=== PATIENT | male | born 1960 | race Caucasian/White ===

== ENCOUNTER 2017-04-16 13:00 | Inpatient (IN) | payer MEDICAID ==
[~2017-04-16] VITALS: Ht 182.9 cm; Wt 68.2 kg
[2017-04-16] MEDS ORDERED: SODIUM CHLORIDE FLUSH 10ML SYR IVF ONE (14:30)
[2017-04-16 14:52] LABS: INTERNATIONAL NORMALIZED RATIO 1.51 (0.93-1.1); PROTHROMBIN TIME 15.6 Seconds (9.6-11.5)
[2017-04-16 14:53] LABS: ALANINE AMINOTRANSFERASE 49 U/L (12-78); ALBUMIN 2.2 g/dL (3.4-5.0); ANION GAP 7 mmol/L (5-15); CALCIUM 7.7 mg/dL (8.5-10.1); CHLORIDE 105 mmol/L (98-107); CREATININE 0.61 mg/dL (0.7-1.3)
[2017-04-16 14:58] LABS: ALKALINE PHOSPHATASE 207 U/L (45-117); BILIRUBIN,TOTAL 4.1 mg/dL (0.2-1.0); TOTAL PROTEIN 8.4 g/dL (6.4-8.2)
[2017-04-16 15:12] LABS: BASOPHILS # (AUTO) 0.09 x10^3/uL (0-0.1); BASOPHILS % (AUTO) 1 % (0-1); EOSINOPHILS # (AUTO) 0.15 x10^3/uL (0-0.4); EOSINOPHILS % (AUTO) 2 % (1-7); LYMPHOCYTES # (AUTO) 0.98 x10^3/uL (1-3.4); LYMPHOCYTES % (AUTO) 15 % (22-44); MD SCAN; MEAN CORPUSCULAR HEMOGLOBIN 39.1 pg (27.5-34.5); MEAN CORPUSCULAR HGB CONC 33.4 g/dL (33.2-36.2); MEAN CORPUSCULAR VOLUME 117.2 fL (81-97); MEAN PLATELET VOLUME 8.3 fL (7.4-10.4); MONOCYTES # (AUTO) 0.74 x10^3/uL (0.2-0.8); MONOCYTES % (AUTO) 11 % (2-9); NEUTROPHILS # (AUTO) 4.78 x10^3/uL (1.8-6.8); NEUTROPHILS % (AUTO) 71 % (42-75); PLATELET COUNT 93 x10^3/uL (130-400); RED BLOOD COUNT 3.67 x10^6/uL (4.38-5.82); RED CELL DISTRIBUTION WIDTH 16.3 % (9.4-14.8)
[2017-04-16] MEDS ORDERED: LIDOCAINE 1%, 20ML ONE (15:55)
[2017-04-16] MEDS ORDERED: LORazepam 0.5MG TABLET PO PRN (16:30)
[2017-04-16] MEDS ORDERED: SODIUM CHLORIDE FLUSH 10ML SYR IVF PRN (16:30)
[2017-04-16] MEDS ORDERED: ONDANSETRON 2MG/ML, 2ML IVPush PRN (16:30)
[2017-04-16] MEDS ORDERED: POLYETHYLENE GLYCOL 17 GM PACKET PO PRN (16:30)
[2017-04-16] MEDS ORDERED: LORazepam 1MG TABLET PO PRN (16:30)
[2017-04-16] MEDS ORDERED: DOCUSATE 100 MG CAPSULE PO PRN (16:30)
[2017-04-16] MEDS ORDERED: morphine SULFATE 10 MG/ML, 1ML IVPush PRN (16:30)
[2017-04-16 16:31] LABS: ACETONE, SERUM Negative (Negative)
[2017-04-16] MEDS: DILTIAZEM 5 MG/ML, 5ML IVPush PRN (18:02)
[2017-04-16 18:09] VITALS: BP 128/70
[2017-04-16 18:28] LABS: CELLS COUNTED 34
[2017-04-16] MEDS: FUROSEMIDE 40 MG/4 ML IV SCH (18:56)
[2017-04-16] MEDS: NICOTINE 14MG/24 HR PATCH.TD24 TD SCH (18:57)
[2017-04-16 20:30] LABS: CULTURE INDICATED? YES; MICROSCOPIC INDICATED
[2017-04-16 20:40] VITALS: BP 111/74
[2017-04-16] MEDS: FAMOTIDINE 20 MG TABLET PO SCH (21:05)
[2017-04-16] MEDS: SODIUM CHLORIDE FLUSH 10ML SYR IVF SCH (21:07)
[2017-04-17 01:18] VITALS: BP 142/95
[2017-04-17 05:14] LABS: MEAN CORPUSCULAR HGB CONC 34.1 g/dL (33.2-36.2); MEAN CORPUSCULAR VOLUME 117.4 fL (81-97); MEAN PLATELET VOLUME 8.3 fL (7.4-10.4); PLATELET COUNT 55 x10^3/uL (130-400); RED BLOOD COUNT 3.14 x10^6/uL (4.38-5.82); RED CELL DISTRIBUTION WIDTH 15.7 % (9.4-14.8)
[2017-04-17 05:20] LABS: ALANINE AMINOTRANSFERASE 37 U/L (12-78); ALBUMIN 1.7 g/dL (3.4-5.0); ANION GAP 9 mmol/L (5-15); CHLORIDE 107 mmol/L (98-107); CREATININE 0.51 mg/dL (0.7-1.3)
[2017-04-17 05:24] LABS: ALKALINE PHOSPHATASE 148 U/L (45-117); BILIRUBIN,TOTAL 3.1 mg/dL (0.2-1.0); CHOL/HDL RATIO 2.2; CHOLESTEROL, TOTAL 75 mg/dL (140-239); HDL CHOL % 45 % (26-37); HDL CHOLESTEROL (DIRECT) 34 mg/dL (40-60); LDL CHOLESTEROL,CALCULATED 27 mg/dL (54-169); LDL/HDL RATIO 0.8 (0.5-3.0); TOTAL PROTEIN 6.5 g/dL (6.4-8.2); TRIGLYCERIDES 69 mg/dL (50-200); VLDL CHOLESTEROL 14 mg/dL (0-25)
[2017-04-17 06:00] LABS: BASOPHILS # (AUTO) 0.09 x10^3/uL (0-0.1); BASOPHILS % (AUTO) 2 % (0-1); EOSINOPHILS # (AUTO) 0.13 x10^3/uL (0-0.4); EOSINOPHILS % (AUTO) 3 % (1-7); LYMPHOCYTES # (AUTO) 0.89 x10^3/uL (1-3.4); LYMPHOCYTES % (AUTO) 19 % (22-44); MD SCAN; MONOCYTES # (AUTO) 0.72 x10^3/uL (0.2-0.8); MONOCYTES % (AUTO) 15 % (2-9); NEUTROPHILS # (AUTO) 2.99 x10^3/uL (1.8-6.8); NEUTROPHILS % (AUTO) 62 % (42-75)
[2017-04-17 07:13] VITALS: BP 113/66
[2017-04-17] MEDS: DILTIAZEM 5 MG/ML, 5ML IVPush PRN ×2 (07:49→08:20)
[2017-04-17 07:50] VITALS: BP 123/79
[2017-04-17] MEDS: FUROSEMIDE 40 MG/4 ML IV SCH ×2 (07:52→18:03)
[2017-04-17] MEDS: THIAMINE 100MG TABLET PO SCH (07:52)
[2017-04-17] MEDS: MULTIVITAMIN 1 TABLET PO SCH (07:52)
[2017-04-17] MEDS: SENNA/DOCUSATE TABLET PO SCH (07:52)
[2017-04-17] MEDS: FOLIC ACID 1 MG TABLET PO SCH (07:52)
[2017-04-17] MEDS: FAMOTIDINE 20 MG TABLET PO SCH ×2 (07:53→21:39)
[2017-04-17] MEDS: SODIUM CHLORIDE FLUSH 10ML SYR IVF SCH ×2 (07:53→21:40)
[2017-04-17] MEDS ORDERED: MAGNESIUM SULFATE PMX 2GM/50ML 50 ML IV ONE (09:00)
[2017-04-17] MEDS: METOPROLOL TARTRATE 25 MG TABLET PO SCH ×2 (09:06→21:39)
[2017-04-17 13:55] VITALS: BP 129/81
[2017-04-17] MEDS: NICOTINE 14MG/24 HR PATCH.TD24 TD SCH (18:03)
[2017-04-17 19:08] VITALS: BP 119/75
[2017-04-17] MEDS: OXYcodone IR 5MG TABLET PO PRN (21:44)
[2017-04-18 01:48] VITALS: BP 112/67
[2017-04-18 05:17] LABS: INTERNATIONAL NORMALIZED RATIO 1.82 (0.93-1.1); PROTHROMBIN TIME 18.7 Seconds (9.6-11.5)
[2017-04-18 05:19] LABS: ALBUMIN 1.7 g/dL (3.4-5.0); ANION GAP 10 mmol/L (5-15); CALCIUM 7.2 mg/dL (8.5-10.1); CHLORIDE 103 mmol/L (98-107)
[2017-04-18 05:22] LABS: MEAN CORPUSCULAR HEMOGLOBIN 39.6 pg (27.5-34.5); MEAN CORPUSCULAR HGB CONC 34.4 g/dL (33.2-36.2); MEAN CORPUSCULAR VOLUME 115.3 fL (81-97); RED CELL DISTRIBUTION WIDTH 14.9 % (9.4-14.8)
[2017-04-18 05:24] LABS: ALANINE AMINOTRANSFERASE 34 U/L (12-78); ALKALINE PHOSPHATASE 124 U/L (45-117); BILIRUBIN,TOTAL 5.9 mg/dL (0.2-1.0); CREATININE 0.64 mg/dL (0.7-1.3); TOTAL PROTEIN 6.5 g/dL (6.4-8.2)
[2017-04-18 06:06] LABS: MEAN PLATELET VOLUME 8.3 fL (7.4-10.4)
[2017-04-18 06:09] LABS: PLATELET COUNT 47 x10^3/uL (130-400)
[2017-04-18 06:15] LABS: BASOPHILS # (AUTO) 0.09 x10^3/uL (0-0.1); BASOPHILS % (AUTO) 2 % (0-1); EOSINOPHILS # (AUTO) 0.15 x10^3/uL (0-0.4); EOSINOPHILS % (AUTO) 3 % (1-7); LYMPHOCYTES # (AUTO) 0.81 x10^3/uL (1-3.4); LYMPHOCYTES % (AUTO) 17 % (22-44); MD SCAN; MONOCYTES % (AUTO) 13 % (2-9); NEUTROPHILS % (AUTO) 66 % (42-75)
[2017-04-18 07:05] VITALS: BP 114/79
[2017-04-18] MEDS ORDERED: MAGNESIUM SULFATE PMX 2GM/50ML 50 ML IV ONE (09:00)
[2017-04-18] MEDS ORDERED: METOPROLOL TARTRATE 25 MG TABLET ONE (09:29)
[2017-04-18] MEDS: MULTIVITAMIN 1 TABLET PO SCH (09:36)
[2017-04-18] MEDS: FUROSEMIDE 40 MG/4 ML IV SCH ×2 (09:36→17:08)
[2017-04-18] MEDS: FOLIC ACID 1 MG TABLET PO SCH (09:36)
[2017-04-18] MEDS: THIAMINE 100MG TABLET PO SCH (09:36)
[2017-04-18] MEDS: SODIUM CHLORIDE FLUSH 10ML SYR IVF SCH ×2 (09:37→20:51)
[2017-04-18] MEDS: FAMOTIDINE 20 MG TABLET PO SCH ×2 (09:37→20:51)
[2017-04-18] MEDS: OXYcodone IR 5MG TABLET PO PRN ×3 (09:43→21:11)
[2017-04-18] MEDS: SENNA/DOCUSATE TABLET PO SCH (09:44)
[2017-04-18] MEDS: METOPROLOL TARTRATE 25 MG TABLET PO SCH ×2 (09:44→17:08)
[2017-04-18 10:29] LABS: BILIRUBIN, DIRECT 2.3 mg/dL (0.1-0.2)
[2017-04-18 14:18] VITALS: BP 115/69
[2017-04-18] MEDS ORDERED: METOPROLOL TARTRATE 25 MG TABLET PO SCH (17:00)
[2017-04-18] MEDS ORDERED: POTASSIUM CHLORIDE 20 MEQ TAB.ER.PRT PO SCH (17:00)
[2017-04-18] MEDS: NICOTINE 14MG/24 HR PATCH.TD24 TD SCH (17:08)
[2017-04-18 20:00] VITALS: BP 98/63
[2017-04-19] VITALS (7 sets, daily range): BP systolic 101–112; BP diastolic 68–74
[2017-04-19] MEDS: LORazepam 2 MG/ML, 1ML IV PRN ×7 (02:36→23:53)
[2017-04-19] MEDS: METOPROLOL TARTRATE 25 MG TABLET PO SCH ×3 (02:36→17:52)
[2017-04-19 05:08] LABS: MEAN CORPUSCULAR HEMOGLOBIN 39.6 pg (27.5-34.5); MEAN CORPUSCULAR HGB CONC 33.9 g/dL (33.2-36.2); MEAN CORPUSCULAR VOLUME 116.9 fL (81-97); RED BLOOD COUNT 3.32 x10^6/uL (4.38-5.82); RED CELL DISTRIBUTION WIDTH 15.3 % (9.4-14.8)
[2017-04-19 05:11] LABS: INTERNATIONAL NORMALIZED RATIO 1.85 (0.93-1.1)
[2017-04-19 05:14] LABS: CHLORIDE 102 mmol/L (98-107)
[2017-04-19 05:20] LABS: ALANINE AMINOTRANSFERASE 35 U/L (12-78); ALBUMIN 1.9 g/dL (3.4-5.0); ALKALINE PHOSPHATASE 133 U/L (45-117); ANION GAP 11 mmol/L (5-15); BILIRUBIN,TOTAL 4.4 mg/dL (0.2-1.0); CREATININE 0.71 mg/dL (0.7-1.3); TOTAL PROTEIN 6.9 g/dL (6.4-8.2)
[2017-04-19 05:49] LABS: PLATELET COUNT 59 x10^3/uL (130-400)
[2017-04-19 05:51] LABS: BASOPHILS # (AUTO) 0.12 x10^3/uL (0-0.1); BASOPHILS % (AUTO) 2 % (0-1); EOSINOPHILS # (AUTO) 0.25 x10^3/uL (0-0.4); EOSINOPHILS % (AUTO) 4 % (1-7); LYMPHOCYTES # (AUTO) 1.23 x10^3/uL (1-3.4); LYMPHOCYTES % (AUTO) 18 % (22-44); MD SCAN; MONOCYTES # (AUTO) 0.77 x10^3/uL (0.2-0.8); MONOCYTES % (AUTO) 11 % (2-9); NEUTROPHILS # (AUTO) 4.45 x10^3/uL (1.8-6.8); NEUTROPHILS % (AUTO) 65 % (42-75)
[2017-04-19] MEDS ORDERED: DIGOXIN 0.25 MG/ML, 2ML IVPush ONE (07:30)
[2017-04-19] MEDS: FAMOTIDINE 20 MG TABLET PO SCH ×2 (09:22→20:10)
[2017-04-19] MEDS: POTASSIUM CHLORIDE 20 MEQ TAB.ER.PRT PO SCH ×2 (09:22→13:35)
[2017-04-19] MEDS: THIAMINE 100MG TABLET PO SCH (09:22)
[2017-04-19] MEDS: MULTIVITAMIN 1 TABLET PO SCH (09:22)
[2017-04-19] MEDS: FOLIC ACID 1 MG TABLET PO SCH (09:22)
[2017-04-19] MEDS: MAGNESIUM CHLORIDE 64 MG TABLET.DR PO SCH ×2 (09:22→20:10)
[2017-04-19] MEDS: SODIUM CHLORIDE FLUSH 10ML SYR IVF SCH ×2 (09:23→20:10)
[2017-04-19] MEDS: SENNA/DOCUSATE TABLET PO SCH (09:23)
[2017-04-19] MEDS: FUROSEMIDE 40 MG/4 ML IV SCH ×2 (10:43→17:00)
[2017-04-19] MEDS: DIGOXIN 0.25 MG TABLET PO SCH ×2 (11:35→17:54)
[2017-04-19] MEDS: CHLORDIAZEPOXIDE 25 MG CAPSULE PO SCH ×2 (16:00→20:10)
[2017-04-19] MEDS: NICOTINE 14MG/24 HR PATCH.TD24 TD SCH (17:00)
[2017-04-20] VITALS (10 sets, daily range): BP systolic 86–130; BP diastolic 55–82
[2017-04-20] MEDS: DILTIAZEM 5 MG/ML, 5ML IVPush PRN (00:37)
[2017-04-20] MEDS: METOPROLOL TARTRATE 25 MG TABLET PO SCH ×3 (02:32→16:27)
[2017-04-20] MEDS: LORazepam 2 MG/ML, 1ML IV PRN ×3 (04:01→18:04)
[2017-04-20] MEDS: FUROSEMIDE 40 MG/4 ML IV SCH (09:14)
[2017-04-20] MEDS: SODIUM CHLORIDE FLUSH 10ML SYR IVF SCH ×2 (09:17→21:30)
[2017-04-20] MEDS: CHLORDIAZEPOXIDE 25 MG CAPSULE PO SCH ×3 (09:17→21:30)
[2017-04-20] MEDS: FOLIC ACID 1 MG TABLET PO SCH (09:17)
[2017-04-20] MEDS: MAGNESIUM CHLORIDE 64 MG TABLET.DR PO SCH ×2 (09:19→21:30)
[2017-04-20] MEDS: THIAMINE 100MG TABLET PO SCH (09:19)
[2017-04-20] MEDS: SENNA/DOCUSATE TABLET PO SCH (09:19)
[2017-04-20] MEDS: MULTIVITAMIN 1 TABLET PO SCH (09:19)
[2017-04-20] MEDS: TAMSULOSIN 0.4 MG CAP.ER.24H PO SCH (09:20)
[2017-04-20] MEDS: FAMOTIDINE 20 MG TABLET PO SCH ×2 (09:20→21:30)
[2017-04-20] MEDS: NICOTINE 14MG/24 HR PATCH.TD24 TD SCH (16:27)
[2017-04-21 01:01] VITALS: BP 105/70
[2017-04-21] MEDS: METOPROLOL TARTRATE 25 MG TABLET PO SCH ×3 (02:11→18:06)
[2017-04-21] MEDS: LORazepam 2 MG/ML, 1ML IV PRN ×3 (04:48→22:28)
[2017-04-21 06:35] VITALS: BP 99/64
[2017-04-21] MEDS: SENNA/DOCUSATE TABLET PO SCH (09:00)
[2017-04-21] MEDS: THIAMINE 100MG TABLET PO SCH (09:00)
[2017-04-21] MEDS: TAMSULOSIN 0.4 MG CAP.ER.24H PO SCH (09:00)
[2017-04-21] MEDS: SODIUM CHLORIDE FLUSH 10ML SYR IVF SCH ×2 (09:00→22:11)
[2017-04-21] MEDS: CHLORDIAZEPOXIDE 25 MG CAPSULE PO SCH ×3 (11:00→22:11)
[2017-04-21] MEDS: FAMOTIDINE 20 MG TABLET PO SCH ×2 (11:01→22:11)
[2017-04-21] MEDS: MULTIVITAMIN 1 TABLET PO SCH (11:01)
[2017-04-21] MEDS: OXYcodone IR 5MG TABLET PO PRN (11:01)
[2017-04-21] MEDS: FOLIC ACID 1 MG TABLET PO SCH (11:01)
[2017-04-21] MEDS: MAGNESIUM CHLORIDE 64 MG TABLET.DR PO SCH ×2 (11:01→22:11)
[2017-04-21 15:21] VITALS: BP 96/62
[2017-04-21] MEDS: DILTIAZEM 5 MG/ML, 5ML IVPush PRN (16:24)
[2017-04-21] MEDS: LORazepam 1MG TABLET PO PRN (18:06)
[2017-04-21] MEDS: NICOTINE 14MG/24 HR PATCH.TD24 TD SCH (18:06)
[2017-04-21 22:00] VITALS: BP 117/75
[2017-04-22] MEDS: LORazepam 2 MG/ML, 1ML IV PRN (00:34)
[2017-04-22 00:49] VITALS: BP 116/78
[2017-04-22] MEDS: METOPROLOL TARTRATE 25 MG TABLET PO SCH ×3 (01:12→17:48)
[2017-04-22] MEDS: OXYcodone IR 5MG TABLET PO PRN (01:12)
[2017-04-22 08:04] LABS: ANION GAP 6 mmol/L (5-15); CALCIUM 7.5 mg/dL (8.5-10.1); CHLORIDE 109 mmol/L (98-107); CREATININE 0.63 mg/dL (0.7-1.3)
[2017-04-22] MEDS: SODIUM CHLORIDE FLUSH 10ML SYR IVF SCH ×2 (09:00→22:34)
[2017-04-22] MEDS: SENNA/DOCUSATE TABLET PO SCH (09:00)
[2017-04-22] MEDS: CHLORDIAZEPOXIDE 25 MG CAPSULE PO SCH (09:07)
[2017-04-22] MEDS: THIAMINE 100MG TABLET PO SCH (09:07)
[2017-04-22] MEDS: MULTIVITAMIN 1 TABLET PO SCH (09:07)
[2017-04-22] MEDS: FOLIC ACID 1 MG TABLET PO SCH (09:07)
[2017-04-22] MEDS: TAMSULOSIN 0.4 MG CAP.ER.24H PO SCH (09:07)
[2017-04-22] MEDS: FAMOTIDINE 20 MG TABLET PO SCH (09:07)
[2017-04-22] MEDS: MAGNESIUM CHLORIDE 64 MG TABLET.DR PO SCH (09:08)
[2017-04-22 13:20] VITALS: BP 98/62
[2017-04-22] MEDS: NICOTINE 14MG/24 HR PATCH.TD24 TD SCH (17:47)
[2017-04-22 19:14] VITALS: BP 113/76
[2017-04-23 00:01] VITALS: BP 115/74
[2017-04-23] MEDS: METOPROLOL TARTRATE 25 MG TABLET PO SCH ×3 (00:02→16:48)
[2017-04-23] MEDS: RIFAXIMIN 550 MG TABLET PO SCH ×3 (00:02→21:35)
[2017-04-23] MEDS: FAMOTIDINE 20 MG TABLET PO SCH ×3 (00:02→21:34)
[2017-04-23] MEDS: MAGNESIUM CHLORIDE 64 MG TABLET.DR PO SCH ×3 (00:03→21:00)
[2017-04-23 07:35] VITALS: BP 99/67
[2017-04-23] MEDS ORDERED: CHLORDIAZEPOXIDE 25 MG CAPSULE PO SCH (09:00)
[2017-04-23] MEDS: TAMSULOSIN 0.4 MG CAP.ER.24H PO SCH (10:24)
[2017-04-23] MEDS: FOLIC ACID 1 MG TABLET PO SCH (10:24)
[2017-04-23] MEDS: MULTIVITAMIN 1 TABLET PO SCH (10:25)
[2017-04-23] MEDS: THIAMINE 100MG TABLET PO SCH (10:25)
[2017-04-23] MEDS: SODIUM CHLORIDE FLUSH 10ML SYR IVF SCH ×2 (10:26→21:00)
[2017-04-23] MEDS: SENNA/DOCUSATE TABLET PO SCH (10:30)
[2017-04-23] MEDS: LORazepam 2 MG/ML, 1ML IV PRN (10:37)
[2017-04-23 13:50] VITALS: BP 110/75
[2017-04-23 16:29] VITALS: BP 112/80
[2017-04-23] MEDS: OXYcodone IR 5MG TABLET PO PRN (16:53)
[2017-04-23] MEDS: LORazepam 1MG TABLET PO PRN (17:35)
[2017-04-23 20:10] VITALS: BP_SYST 98; BP_SYST 99; BP_DIAS 64; BP_DIAS 65
[2017-04-24 01:07] VITALS: BP 102/64
[2017-04-24] MEDS: METOPROLOL TARTRATE 25 MG TABLET PO SCH ×3 (02:00→18:00)
[2017-04-24] MEDS: RIFAXIMIN 550 MG TABLET PO SCH ×2 (08:12→21:36)
[2017-04-24] MEDS: SODIUM CHLORIDE FLUSH 10ML SYR IVF SCH ×2 (08:12→21:36)
[2017-04-24] MEDS: MULTIVITAMIN 1 TABLET PO SCH (08:13)
[2017-04-24] MEDS: FAMOTIDINE 20 MG TABLET PO SCH ×2 (08:13→21:36)
[2017-04-24] MEDS: THIAMINE 100MG TABLET PO SCH (08:13)
[2017-04-24] MEDS: OXYcodone IR 5MG TABLET PO PRN (08:13)
[2017-04-24] MEDS: TAMSULOSIN 0.4 MG CAP.ER.24H PO SCH (08:13)
[2017-04-24] MEDS: NICOTINE 14MG/24 HR PATCH.TD24 TD SCH (08:13)
[2017-04-24] MEDS: FOLIC ACID 1 MG TABLET PO SCH (08:13)
[2017-04-24] MEDS: MAGNESIUM CHLORIDE 64 MG TABLET.DR PO SCH ×2 (08:13→21:36)
[2017-04-24] MEDS: SENNA/DOCUSATE TABLET PO SCH (08:18)
[2017-04-24 09:05] VITALS: BP 106/74
[2017-04-24] MEDS ORDERED: ACETAMINOPHEN 325 MG TABLET PO PRN (13:30)
[2017-04-24 13:47] VITALS: BP 107/72
[2017-04-24] MEDS: D5%-LACTATED RINGERS 1,000 ML IV SCH ×2 (15:06→21:36)
[2017-04-24 18:46] VITALS: BP_SYST 134; BP_SYST 139; BP_DIAS 88; BP_DIAS 92
[2017-04-25] MEDS: METOPROLOL TARTRATE 25 MG TABLET PO SCH ×3 (01:39→18:00)
[2017-04-25 01:55] VITALS: BP 137/86
[2017-04-25 07:26] LABS: ANION GAP 6 mmol/L (5-15); CALCIUM 8.1 mg/dL (8.5-10.1); CHLORIDE 111 mmol/L (98-107); CREATININE 0.67 mg/dL (0.7-1.3)
[2017-04-25] MEDS: TAMSULOSIN 0.4 MG CAP.ER.24H PO SCH (08:21)
[2017-04-25] MEDS: NICOTINE 14MG/24 HR PATCH.TD24 TD SCH (08:21)
[2017-04-25] MEDS: SENNA/DOCUSATE TABLET PO SCH (08:21)
[2017-04-25] MEDS: SODIUM CHLORIDE FLUSH 10ML SYR IVF SCH ×2 (08:21→19:56)
[2017-04-25] MEDS: MULTIVITAMIN 1 TABLET PO SCH (08:21)
[2017-04-25] MEDS: FOLIC ACID 1 MG TABLET PO SCH (08:21)
[2017-04-25] MEDS: FAMOTIDINE 20 MG TABLET PO SCH ×2 (08:21→19:48)
[2017-04-25] MEDS: THIAMINE 100MG TABLET PO SCH (08:21)
[2017-04-25] MEDS: MAGNESIUM CHLORIDE 64 MG TABLET.DR PO SCH ×2 (08:21→19:48)
[2017-04-25] MEDS: RIFAXIMIN 550 MG TABLET PO SCH ×2 (08:21→19:48)
[2017-04-25] MEDS: D5%-LACTATED RINGERS 1,000 ML IV SCH ×2 (08:52→19:49)
[2017-04-25 09:43] VITALS: BP 102/67
[2017-04-25] MEDS: LORazepam 2 MG/ML, 1ML IV PRN ×3 (11:28→23:23)
[2017-04-25] MEDS ORDERED: MAGNESIUM SULFATE PMX 2GM/50ML 50 ML IV ONE (14:30)
[2017-04-25 15:04] VITALS: BP 108/70
[2017-04-25 19:52] VITALS: BP 144/72
[2017-04-26 01:39] VITALS: BP 149/78
[2017-04-26] MEDS: METOPROLOL TARTRATE 25 MG TABLET PO SCH ×3 (02:36→18:14)
[2017-04-26] MEDS: D5%-LACTATED RINGERS 1,000 ML IV SCH ×3 (02:37→20:06)
[2017-04-26 07:37] VITALS: BP 120/79
[2017-04-26] MEDS: NICOTINE 14MG/24 HR PATCH.TD24 TD SCH (08:42)
[2017-04-26] MEDS: TAMSULOSIN 0.4 MG CAP.ER.24H PO SCH (08:43)
[2017-04-26] MEDS: SENNA/DOCUSATE TABLET PO SCH (08:43)
[2017-04-26] MEDS: MULTIVITAMIN 1 TABLET PO SCH (08:43)
[2017-04-26] MEDS: RIFAXIMIN 550 MG TABLET PO SCH ×2 (08:43→22:04)
[2017-04-26] MEDS: FOLIC ACID 1 MG TABLET PO SCH (08:43)
[2017-04-26] MEDS: FAMOTIDINE 20 MG TABLET PO SCH ×2 (08:43→22:04)
[2017-04-26] MEDS: MAGNESIUM CHLORIDE 64 MG TABLET.DR PO SCH ×2 (08:43→22:04)
[2017-04-26] MEDS: SODIUM CHLORIDE FLUSH 10ML SYR IVF SCH ×2 (08:44→22:04)
[2017-04-26] MEDS: THIAMINE 100MG TABLET PO SCH (08:44)
[2017-04-26] MEDS: LORazepam 2 MG/ML, 1ML IV PRN (08:54)
[2017-04-26 13:07] VITALS: BP 118/79
[2017-04-26 16:00] LABS: TROPONIN I < 0.015 ng/mL (0.000-0.045)
[2017-04-26 19:44] VITALS: BP 124/82
[2017-04-26] MEDS ORDERED: CHLORDIAZEPOXIDE 25 MG CAPSULE PO PRN (21:30)
[2017-04-26] MEDS ORDERED: LORazepam 2 MG/ML, 1ML IVPush PRN (21:30)
[2017-04-27 01:09] VITALS: BP 133/81
[2017-04-27] MEDS: METOPROLOL TARTRATE 25 MG TABLET PO SCH ×3 (02:13→17:28)
[2017-04-27] MEDS: D5%-LACTATED RINGERS 1,000 ML IV SCH (04:35)
[2017-04-27 07:46] LABS: MEAN CORPUSCULAR HEMOGLOBIN 39.3 pg (27.5-34.5); MEAN CORPUSCULAR HGB CONC 33.8 g/dL (33.2-36.2); MEAN CORPUSCULAR VOLUME 116.1 fL (81-97); MEAN PLATELET VOLUME 8.5 fL (7.4-10.4); PLATELET COUNT 78 x10^3/uL (130-400); RED BLOOD COUNT 3.31 x10^6/uL (4.38-5.82); RED CELL DISTRIBUTION WIDTH 15.2 % (9.4-14.8)
[2017-04-27 07:57] LABS: ALBUMIN 1.5 g/dL (3.4-5.0); ANION GAP 6 mmol/L (5-15); CALCIUM 7.5 mg/dL (8.5-10.1); CHLORIDE 114 mmol/L (98-107)
[2017-04-27 08:00] LABS: ALANINE AMINOTRANSFERASE 38 U/L (12-78); ALKALINE PHOSPHATASE 90 U/L (45-117); BILIRUBIN,TOTAL 4.1 mg/dL (0.2-1.0); CREATININE 0.51 mg/dL (0.7-1.3); TOTAL PROTEIN 6.4 g/dL (6.4-8.2)
[2017-04-27 08:02] VITALS: BP 124/82
[2017-04-27 08:07] LABS: ANISOCYTOSIS 1+; BASOPHILS # (AUTO) 0.02 x10^3/uL (0-0.1); BASOPHILS % (AUTO) 0 % (0-1); EOSINOPHILS # (AUTO) 0.12 x10^3/uL (0-0.4); EOSINOPHILS % (AUTO) 3 % (1-7); LYMPHOCYTES # (AUTO) 0.75 x10^3/uL (1-3.4); LYMPHOCYTES % (AUTO) 16 % (22-44); MD MORPH REVIEW ONLY; MONOCYTES # (AUTO) 0.69 x10^3/uL (0.2-0.8); MONOCYTES % (AUTO) 15 % (2-9); NEUTROPHILS # (AUTO) 3.03 x10^3/uL (1.8-6.8); NEUTROPHILS % (AUTO) 66 % (42-75)
[2017-04-27 08:08] LABS: <PLATELET ESTIMATE> DECREASED; LARGE PLATELETS 1+
[2017-04-27] MEDS: SENNA/DOCUSATE TABLET PO SCH (09:00)
[2017-04-27] MEDS: MAGNESIUM CHLORIDE 64 MG TABLET.DR PO SCH ×2 (09:24→20:00)
[2017-04-27] MEDS: THIAMINE 100MG TABLET PO SCH (09:24)
[2017-04-27] MEDS: RIFAXIMIN 550 MG TABLET PO SCH ×2 (09:24→20:00)
[2017-04-27] MEDS: NICOTINE 14MG/24 HR PATCH.TD24 TD SCH (09:24)
[2017-04-27] MEDS: FOLIC ACID 1 MG TABLET PO SCH (09:24)
[2017-04-27] MEDS: MULTIVITAMIN 1 TABLET PO SCH (09:25)
[2017-04-27] MEDS: FAMOTIDINE 20 MG TABLET PO SCH ×2 (09:25→20:00)
[2017-04-27] MEDS: TAMSULOSIN 0.4 MG CAP.ER.24H PO SCH (09:25)
[2017-04-27] MEDS: SODIUM CHLORIDE FLUSH 10ML SYR IVF SCH ×2 (09:33→20:00)
[2017-04-27] MEDS: LACTULOSE 20 GM/30 ML UDC PO SCH ×3 (11:51→19:47)
[2017-04-27] MEDS: ZINC SULFATE 220 MG CAPSULE PO SCH ×2 (11:51→17:21)
[2017-04-27 13:39] VITALS: BP 111/70
[2017-04-27 17:24] VITALS: BP 120/79
[2017-04-27 18:30] VITALS: BP 108/75
[2017-04-27] MEDS ORDERED: VANCOMYCIN PER PHARMACY MC PRN (22:30)
[2017-04-27] MEDS ORDERED: PHARMACOKINETIC MONITORING MC PRN (22:30)
[2017-04-27] MEDS: PIPERACILLIN/TAZO/PMX 3.375GM 50 ML IV SCH (23:43)
[2017-04-28 01:04] VITALS: BP 129/84
[2017-04-28] MEDS: METOPROLOL TARTRATE 25 MG TABLET PO SCH ×4 (01:46→18:00)
[2017-04-28] MEDS: LACTULOSE 20 GM/30 ML UDC PO SCH ×4 (05:49→20:15)
[2017-04-28] MEDS: PIPERACILLIN/TAZO/PMX 3.375GM 50 ML IV SCH ×2 (05:49→11:07)
[2017-04-28 06:53] VITALS: BP 91/73
[2017-04-28] MEDS: SENNA/DOCUSATE TABLET PO SCH (09:00)
[2017-04-28] MEDS: THIAMINE 100MG TABLET PO SCH (11:08)
[2017-04-28] MEDS: FAMOTIDINE 20 MG TABLET PO SCH ×2 (11:08→20:15)
[2017-04-28] MEDS: TAMSULOSIN 0.4 MG CAP.ER.24H PO SCH (11:08)
[2017-04-28] MEDS: ZINC SULFATE 220 MG CAPSULE PO SCH ×3 (11:08→18:16)
[2017-04-28] MEDS: RIFAXIMIN 550 MG TABLET PO SCH ×2 (11:08→20:15)
[2017-04-28] MEDS: FOLIC ACID 1 MG TABLET PO SCH (11:08)
[2017-04-28] MEDS: MAGNESIUM CHLORIDE 64 MG TABLET.DR PO SCH ×2 (11:09→20:15)
[2017-04-28] MEDS: NICOTINE 14MG/24 HR PATCH.TD24 TD SCH (11:13)
[2017-04-28] MEDS: MULTIVITAMIN 1 TABLET PO SCH (11:13)
[2017-04-28] MEDS: VANCOMYCIN 1,600 MG in SODIUM CHLORIDE 0.9% 250 ML IV SCH (12:50)
[2017-04-28] MEDS: SODIUM CHLORIDE FLUSH 10ML SYR IVF SCH ×2 (12:50→20:15)
[2017-04-28] MEDS: PHYTONADIONE 10 MG/ML, 1ML SQ SCH (14:12)
[2017-04-28 14:54] VITALS: BP 103/67
[2017-04-28] MEDS: PIPERACILLIN/TAZO 3.375 GM in DEXTROSE 5% 50 ML IV SCH ×2 (18:16→23:52)
[2017-04-28 19:14] VITALS: BP 110/72
[2017-04-28] MEDS ORDERED: SODIUM CHLORIDE 0.9%, 500ML IVBOLUS ONE (21:30)
[2017-04-29] MEDS ORDERED: HALOPERIDOL 5 MG/ML IM ONE (00:05)
[2017-04-29] MEDS: VANCOMYCIN 1,600 MG in SODIUM CHLORIDE 0.9% 250 ML IV SCH ×2 (00:19→12:56)
[2017-04-29] MEDS ORDERED: HALOPERIDOL 5 MG/ML IM PRN (00:30)
[2017-04-29 05:10] VITALS: BP 114/75
[2017-04-29 05:41] LABS: MEAN CORPUSCULAR HEMOGLOBIN 38.4 pg (27.5-34.5); MEAN CORPUSCULAR HGB CONC 33.1 g/dL (33.2-36.2); MEAN CORPUSCULAR VOLUME 116.1 fL (81-97); MEAN PLATELET VOLUME 9.1 fL (7.4-10.4); PLATELET COUNT 83 x10^3/uL (130-400)
[2017-04-29 05:46] LABS: INTERNATIONAL NORMALIZED RATIO 2.04 (0.93-1.1); PROTHROMBIN TIME 20.9 Seconds (9.6-11.5)
[2017-04-29] MEDS: PIPERACILLIN/TAZO 3.375 GM in DEXTROSE 5% 50 ML IV SCH ×4 (05:47→23:03)
[2017-04-29 05:51] LABS: CHLORIDE 113 mmol/L (98-107)
[2017-04-29] MEDS: LACTULOSE 20 GM/30 ML UDC PO SCH ×4 (05:54→20:13)
[2017-04-29] MEDS: METOPROLOL TARTRATE 25 MG TABLET PO SCH ×3 (05:54→20:14)
[2017-04-29 05:59] LABS: ALANINE AMINOTRANSFERASE 35 U/L (12-78); ALBUMIN 1.6 g/dL (3.4-5.0); ALKALINE PHOSPHATASE 94 U/L (45-117); ANION GAP 8 mmol/L (5-15); CALCIUM 7.8 mg/dL (8.5-10.1); CREATININE 0.98 mg/dL (0.7-1.3); TOTAL PROTEIN 6.1 g/dL (6.4-8.2)
[2017-04-29 06:18] LABS: BASOPHILS # (AUTO) 0.09 x10^3/uL (0-0.1); BASOPHILS % (AUTO) 2 % (0-1); EOSINOPHILS # (AUTO) 0.11 x10^3/uL (0-0.4); EOSINOPHILS % (AUTO) 2 % (1-7); LYMPHOCYTES # (AUTO) 0.91 x10^3/uL (1-3.4); LYMPHOCYTES % (AUTO) 16 % (22-44); MD SCAN; MONOCYTES # (AUTO) 0.98 x10^3/uL (0.2-0.8); MONOCYTES % (AUTO) 17 % (2-9); NEUTROPHILS # (AUTO) 3.79 x10^3/uL (1.8-6.8); NEUTROPHILS % (AUTO) 64 % (42-75)
[2017-04-29 07:41] VITALS: BP 94/61
[2017-04-29] MEDS: NICOTINE 14MG/24 HR PATCH.TD24 TD SCH (09:00)
[2017-04-29] MEDS: SODIUM CHLORIDE FLUSH 10ML SYR IVF SCH ×2 (09:00→20:14)
[2017-04-29] MEDS: SENNA/DOCUSATE TABLET PO SCH (09:00)
[2017-04-29] MEDS: ZINC SULFATE 220 MG CAPSULE PO SCH ×3 (09:57→17:22)
[2017-04-29] MEDS: TAMSULOSIN 0.4 MG CAP.ER.24H PO SCH (09:57)
[2017-04-29] MEDS: MULTIVITAMIN 1 TABLET PO SCH (09:57)
[2017-04-29] MEDS: RIFAXIMIN 550 MG TABLET PO SCH ×2 (09:57→20:14)
[2017-04-29] MEDS: FAMOTIDINE 20 MG TABLET PO SCH ×2 (09:57→20:14)
[2017-04-29] MEDS: MAGNESIUM CHLORIDE 64 MG TABLET.DR PO SCH ×2 (09:58→20:14)
[2017-04-29] MEDS: THIAMINE 100MG TABLET PO SCH (09:58)
[2017-04-29] MEDS: PHYTONADIONE 10 MG/ML, 1ML SQ SCH (09:58)
[2017-04-29] MEDS: FOLIC ACID 1 MG TABLET PO SCH (09:58)
[2017-04-29 15:16] VITALS: BP 107/72
[2017-04-29 19:09] VITALS: BP 95/64
[2017-04-30] MEDS: VANCOMYCIN 1,600 MG in SODIUM CHLORIDE 0.9% 250 ML IV SCH (00:32)
[2017-04-30 01:55] VITALS: BP 97/56
[2017-04-30 05:06] LABS: INTERNATIONAL NORMALIZED RATIO 1.89 (0.93-1.1); PROTHROMBIN TIME 19.4 Seconds (9.6-11.5)
[2017-04-30 05:11] LABS: CHLORIDE 117 mmol/L (98-107)
[2017-04-30 05:16] LABS: MEAN CORPUSCULAR HEMOGLOBIN 38.5 pg (27.5-34.5); MEAN CORPUSCULAR HGB CONC 33.2 g/dL (33.2-36.2); MEAN CORPUSCULAR VOLUME 116.2 fL (81-97); MEAN PLATELET VOLUME 9.1 fL (7.4-10.4); PLATELET COUNT 84 x10^3/uL (130-400)
[2017-04-30 05:27] LABS: ALANINE AMINOTRANSFERASE 32 U/L (12-78); ALBUMIN 1.4 g/dL (3.4-5.0); ALKALINE PHOSPHATASE 104 U/L (45-117); ANION GAP 5 mmol/L (5-15); CALCIUM 7.7 mg/dL (8.5-10.1); TOTAL PROTEIN 6.2 g/dL (6.4-8.2)
[2017-04-30 05:48] LABS: BASOPHILS # (AUTO) 0.08 x10^3/uL (0-0.1); BASOPHILS % (AUTO) 1 % (0-1); EOSINOPHILS # (AUTO) 0.22 x10^3/uL (0-0.4); EOSINOPHILS % (AUTO) 4 % (1-7); LYMPHOCYTES # (AUTO) 1.07 x10^3/uL (1-3.4); LYMPHOCYTES % (AUTO) 17 % (22-44); MD SCAN; MONOCYTES # (AUTO) 0.94 x10^3/uL (0.2-0.8); MONOCYTES % (AUTO) 15 % (2-9); NEUTROPHILS # (AUTO) 3.93 x10^3/uL (1.8-6.8); NEUTROPHILS % (AUTO) 63 % (42-75)
[2017-04-30] MEDS: LACTULOSE 20 GM/30 ML UDC PO SCH ×4 (05:57→22:13)
[2017-04-30] MEDS: METOPROLOL TARTRATE 25 MG TABLET PO SCH ×3 (05:57→20:50)
[2017-04-30] MEDS: PIPERACILLIN/TAZO 3.375 GM in DEXTROSE 5% 50 ML IV SCH ×3 (05:57→17:02)
[2017-04-30 07:24] VITALS: BP 100/70
[2017-04-30] MEDS: FAMOTIDINE 20 MG TABLET PO SCH ×2 (08:48→22:13)
[2017-04-30] MEDS: RIFAXIMIN 550 MG TABLET PO SCH ×2 (08:48→22:13)
[2017-04-30] MEDS: TAMSULOSIN 0.4 MG CAP.ER.24H PO SCH (08:48)
[2017-04-30] MEDS: PHYTONADIONE 10 MG/ML, 1ML SQ SCH (08:50)
[2017-04-30] MEDS: MAGNESIUM CHLORIDE 64 MG TABLET.DR PO SCH ×3 (08:51→22:13)
[2017-04-30] MEDS: MULTIVITAMIN 1 TABLET PO SCH (08:51)
[2017-04-30] MEDS: FOLIC ACID 1 MG TABLET PO SCH (08:51)
[2017-04-30] MEDS: THIAMINE 100MG TABLET PO SCH (08:51)
[2017-04-30] MEDS: NICOTINE 14MG/24 HR PATCH.TD24 TD SCH (08:51)
[2017-04-30] MEDS: ZINC SULFATE 220 MG CAPSULE PO SCH ×3 (08:51→17:02)
[2017-04-30] MEDS: SENNA/DOCUSATE TABLET PO SCH (08:52)
[2017-04-30] MEDS: SODIUM CHLORIDE FLUSH 10ML SYR IVF SCH ×2 (09:00→22:13)
[2017-04-30 12:59] VITALS: BP 108/67
[2017-04-30] MEDS ORDERED: VANCOMYCIN 1,600 MG in SODIUM CHLORIDE 0.9% 250 ML IV SCH (13:00)
[2017-04-30 20:00] VITALS: BP 97/65
[2017-04-30] MEDS ORDERED: ALBUTEROL/IPRATROPIUM 2.5MG/0.5MG, 3 ML ONE (22:30)
[2017-05-01 01:50] VITALS: BP 108/68
[2017-05-01] MEDS: PIPERACILLIN/TAZO 3.375 GM in DEXTROSE 5% 50 ML IV SCH ×4 (01:59→21:24)
[2017-05-01] MEDS ORDERED: VANCOMYCIN 1,600 MG in SODIUM CHLORIDE 0.9% 250 ML IV ONE (02:00)
[2017-05-01 05:28] LABS: INTERNATIONAL NORMALIZED RATIO 1.83 (0.93-1.1); PROTHROMBIN TIME 18.8 Seconds (9.6-11.5)
[2017-05-01 05:31] LABS: CHLORIDE 114 mmol/L (98-107)
[2017-05-01 05:32] LABS: MEAN CORPUSCULAR HEMOGLOBIN 40.4 pg (27.5-34.5); MEAN CORPUSCULAR HGB CONC 34.5 g/dL (33.2-36.2); MEAN CORPUSCULAR VOLUME 116.9 fL (81-97); RED BLOOD COUNT 3.35 x10^6/uL (4.38-5.82); RED CELL DISTRIBUTION WIDTH 14.8 % (9.4-14.8)
[2017-05-01 05:37] LABS: ALANINE AMINOTRANSFERASE 40 U/L (12-78); ALBUMIN 1.6 g/dL (3.4-5.0); ALKALINE PHOSPHATASE 110 U/L (45-117); ANION GAP 8 mmol/L (5-15); BILIRUBIN,TOTAL 3.2 mg/dL (0.2-1.0); CALCIUM 7.9 mg/dL (8.5-10.1); CREATININE 1.08 mg/dL (0.7-1.3)
[2017-05-01 05:45] VITALS: BP 103/75
[2017-05-01 05:51] LABS: BASOPHILS # (AUTO) 0.06 x10^3/uL (0-0.1); BASOPHILS % (AUTO) 1 % (0-1); EOSINOPHILS # (AUTO) 0.18 x10^3/uL (0-0.4); EOSINOPHILS % (AUTO) 3 % (1-7); LYMPHOCYTES # (AUTO) 0.97 x10^3/uL (1-3.4); LYMPHOCYTES % (AUTO) 15 % (22-44); MD SCAN; MEAN PLATELET VOLUME 9.5 fL (7.4-10.4); MONOCYTES # (AUTO) 0.98 x10^3/uL (0.2-0.8); MONOCYTES % (AUTO) 15 % (2-9); NEUTROPHILS # (AUTO) 4.29 x10^3/uL (1.8-6.8); NEUTROPHILS % (AUTO) 66 % (42-75); PLATELET COUNT 83 x10^3/uL (130-400)
[2017-05-01] MEDS: LACTULOSE 20 GM/30 ML UDC PO SCH ×4 (06:00→19:46)
[2017-05-01] MEDS: METOPROLOL TARTRATE 25 MG TABLET PO SCH ×3 (06:00→19:47)
[2017-05-01 06:30] VITALS: BP 117/79
[2017-05-01] MEDS: ZINC SULFATE 220 MG CAPSULE PO SCH ×3 (08:00→17:00)
[2017-05-01] MEDS: MAGNESIUM CHLORIDE 64 MG TABLET.DR PO SCH ×2 (09:00→19:46)
[2017-05-01] MEDS: SODIUM CHLORIDE FLUSH 10ML SYR IVF SCH ×2 (09:00→21:24)
[2017-05-01] MEDS: THIAMINE 100MG TABLET PO SCH (09:00)
[2017-05-01] MEDS: FOLIC ACID 1 MG TABLET PO SCH (09:00)
[2017-05-01] MEDS: RIFAXIMIN 550 MG TABLET PO SCH ×2 (09:00→19:46)
[2017-05-01] MEDS: MULTIVITAMIN 1 TABLET PO SCH (09:00)
[2017-05-01] MEDS: TAMSULOSIN 0.4 MG CAP.ER.24H PO SCH (09:00)
[2017-05-01] MEDS ORDERED: D5%-0.45NACL+KCL 20MEQ 1,000 ML IV SCH (10:00)
[2017-05-01] MEDS: FAMOTIDINE 20 MG/2 ML IVPush SCH ×2 (10:30→21:24)
[2017-05-01] MEDS: NICOTINE 14MG/24 HR PATCH.TD24 TD SCH (11:29)
[2017-05-01 12:45] VITALS: BP 122/82
[2017-05-01 19:14] VITALS: BP 114/78
[2017-05-01] MEDS: D5%-0.45NACL+KCL 20MEQ 1,000 ML IV SCH (22:52)
[2017-05-02] MEDS: PIPERACILLIN/TAZO 3.375 GM in DEXTROSE 5% 50 ML IV SCH ×4 (02:47→19:54)
[2017-05-02 03:35] VITALS: BP 114/85
[2017-05-02 04:15] VITALS: BP 107/83
[2017-05-02] MEDS: METOPROLOL TARTRATE 25 MG TABLET PO SCH ×3 (04:56→21:18)
[2017-05-02] MEDS: LACTULOSE 20 GM/30 ML UDC PO SCH ×3 (04:56→18:27)
[2017-05-02 05:09] LABS: ANION GAP 6 mmol/L (5-15); CALCIUM 7.6 mg/dL (8.5-10.1); CHLORIDE 116 mmol/L (98-107)
[2017-05-02 05:12] LABS: CREATININE 0.96 mg/dL (0.7-1.3); VANCOMYCIN,RANDOM 10.2 mcg/mL
[2017-05-02] MEDS: VANCOMYCIN 1,600 MG in SODIUM CHLORIDE 0.9% 250 ML IV SCH (06:08)
[2017-05-02] MEDS: ZINC SULFATE 220 MG CAPSULE PO SCH ×3 (07:17→17:00)
[2017-05-02] MEDS: FOLIC ACID 1 MG TABLET PO SCH (07:17)
[2017-05-02] MEDS: TAMSULOSIN 0.4 MG CAP.ER.24H PO SCH (07:17)
[2017-05-02] MEDS: MULTIVITAMIN 1 TABLET PO SCH (07:18)
[2017-05-02] MEDS: MAGNESIUM CHLORIDE 64 MG TABLET.DR PO SCH ×2 (07:18→19:38)
[2017-05-02] MEDS: THIAMINE 100MG TABLET PO SCH (07:18)
[2017-05-02] MEDS: RIFAXIMIN 550 MG TABLET PO SCH ×2 (07:18→19:44)
[2017-05-02 08:00] VITALS: BP 103/68
[2017-05-02] MEDS: FAMOTIDINE 20 MG/2 ML IVPush SCH ×2 (08:57→19:54)
[2017-05-02] MEDS: SODIUM CHLORIDE FLUSH 10ML SYR IVF SCH ×2 (08:57→19:54)
[2017-05-02] MEDS: D5%-0.45NACL+KCL 20MEQ 1,000 ML IV SCH (08:57)
[2017-05-02] MEDS: NICOTINE 14MG/24 HR PATCH.TD24 TD SCH (08:58)
[2017-05-02 15:00] VITALS: BP 115/84
[2017-05-02 19:50] VITALS: BP 122/81
[2017-05-03] MEDS: LACTULOSE 20 GM/30 ML UDC PO SCH ×5 (00:16→21:07)
[2017-05-03] MEDS: PIPERACILLIN/TAZO 3.375 GM in DEXTROSE 5% 50 ML IV SCH ×4 (02:01→20:23)
[2017-05-03 02:45] VITALS: BP 108/71
[2017-05-03 04:54] LABS: MEAN CORPUSCULAR HEMOGLOBIN 38.2 pg (27.5-34.5); MEAN CORPUSCULAR HGB CONC 33.1 g/dL (33.2-36.2); MEAN CORPUSCULAR VOLUME 115.4 fL (81-97); MEAN PLATELET VOLUME 9.3 fL (7.4-10.4); PLATELET COUNT 107 x10^3/uL (130-400); RED BLOOD COUNT 3.39 x10^6/uL (4.38-5.82); RED CELL DISTRIBUTION WIDTH 15.1 % (9.4-14.8)
[2017-05-03 05:04] LABS: ALBUMIN 1.4 g/dL (3.4-5.0); ANION GAP 5 mmol/L (5-15); CALCIUM 7.6 mg/dL (8.5-10.1); CHLORIDE 117 mmol/L (98-107)
[2017-05-03 05:10] LABS: ALANINE AMINOTRANSFERASE 52 U/L (12-78); ALKALINE PHOSPHATASE 113 U/L (45-117); BILIRUBIN,TOTAL 2.9 mg/dL (0.2-1.0); CREATININE 0.98 mg/dL (0.7-1.3); TOTAL PROTEIN 6.6 g/dL (6.4-8.2)
[2017-05-03 05:56] LABS: BASOPHILS # (AUTO) 0.03 x10^3/uL (0-0.1); BASOPHILS % (AUTO) 0 % (0-1); EOSINOPHILS # (AUTO) 0.27 x10^3/uL (0-0.4); EOSINOPHILS % (AUTO) 3 % (1-7); LYMPHOCYTES # (AUTO) 1.17 x10^3/uL (1-3.4); LYMPHOCYTES % (AUTO) 14 % (22-44); MD SCAN; MONOCYTES # (AUTO) 0.83 x10^3/uL (0.2-0.8); MONOCYTES % (AUTO) 10 % (2-9); NEUTROPHILS % (AUTO) 72 % (42-75)
[2017-05-03] MEDS: VANCOMYCIN 1,600 MG in SODIUM CHLORIDE 0.9% 250 ML IV SCH (06:03)
[2017-05-03] MEDS: METOPROLOL TARTRATE 25 MG TABLET PO SCH ×3 (06:03→21:08)
[2017-05-03] MEDS: ZINC SULFATE 220 MG CAPSULE PO SCH ×3 (08:00→17:00)
[2017-05-03 08:05] VITALS: BP 109/69
[2017-05-03] MEDS: TAMSULOSIN 0.4 MG CAP.ER.24H PO SCH (09:00)
[2017-05-03] MEDS: SODIUM CHLORIDE FLUSH 10ML SYR IVF SCH ×2 (09:44→21:06)
[2017-05-03] MEDS: THIAMINE 100MG TABLET PO SCH (09:45)
[2017-05-03] MEDS: FAMOTIDINE 20 MG/2 ML IVPush SCH ×2 (09:45→21:07)
[2017-05-03] MEDS: RIFAXIMIN 550 MG TABLET PO SCH ×2 (09:45→21:07)
[2017-05-03] MEDS: FOLIC ACID 1 MG TABLET PO SCH (09:45)
[2017-05-03] MEDS: NICOTINE 14MG/24 HR PATCH.TD24 TD SCH (09:46)
[2017-05-03] MEDS: SPIRONOLACTONE 100 MG TABLET PO SCH (12:30)
[2017-05-03] MEDS: FUROSEMIDE 40 MG TABLET PO SCH (12:30)
[2017-05-03 12:40] VITALS: BP 122/81
[2017-05-03 19:34] VITALS: BP 123/71
[2017-05-03] MEDS ORDERED: MAGNESIUM CARBONATE 54 MG/5 ML ORAL SOL NG SCH (21:00)
[2017-05-04] MEDS: MAGNESIUM CARBONATE 54 MG/5 ML ORAL SOL NG SCH ×3 (00:57→21:24)
[2017-05-04 01:17] VITALS: BP 108/74
[2017-05-04] MEDS: PIPERACILLIN/TAZO 3.375 GM in DEXTROSE 5% 50 ML IV SCH ×4 (02:16→19:40)
[2017-05-04 05:16] LABS: MEAN CORPUSCULAR HEMOGLOBIN 38.9 pg (27.5-34.5); MEAN CORPUSCULAR HGB CONC 33.4 g/dL (33.2-36.2); MEAN CORPUSCULAR VOLUME 116.7 fL (81-97); MEAN PLATELET VOLUME 8.9 fL (7.4-10.4); PLATELET COUNT 113 x10^3/uL (130-400); RED BLOOD COUNT 3.43 x10^6/uL (4.38-5.82); RED CELL DISTRIBUTION WIDTH 14.9 % (9.4-14.8)
[2017-05-04 05:23] LABS: ALANINE AMINOTRANSFERASE 51 U/L (12-78); ALBUMIN 1.4 g/dL (3.4-5.0); ANION GAP 7 mmol/L (5-15); CALCIUM 7.8 mg/dL (8.5-10.1); CHLORIDE 120 mmol/L (98-107)
[2017-05-04 05:26] LABS: ALKALINE PHOSPHATASE 169 U/L (45-117); BILIRUBIN,TOTAL 2.8 mg/dL (0.2-1.0); CREATININE 1.04 mg/dL (0.7-1.3); TOTAL PROTEIN 6.7 g/dL (6.4-8.2)
[2017-05-04 05:54] LABS: BASOPHILS # (AUTO) 0.16 x10^3/uL (0-0.1); BASOPHILS % (AUTO) 2 % (0-1); EOSINOPHILS # (AUTO) 0.28 x10^3/uL (0-0.4); EOSINOPHILS % (AUTO) 3 % (1-7); LYMPHOCYTES # (AUTO) 1.44 x10^3/uL (1-3.4); LYMPHOCYTES % (AUTO) 16 % (22-44); MD SCAN; MONOCYTES # (AUTO) 1.26 x10^3/uL (0.2-0.8); MONOCYTES % (AUTO) 14 % (2-9); NEUTROPHILS # (AUTO) 5.88 x10^3/uL (1.8-6.8); NEUTROPHILS % (AUTO) 65 % (42-75)
[2017-05-04] MEDS: VANCOMYCIN 1,600 MG in SODIUM CHLORIDE 0.9% 250 ML IV SCH (06:20)
[2017-05-04] MEDS: LACTULOSE 20 GM/30 ML UDC PO SCH ×4 (06:20→21:24)
[2017-05-04] MEDS: METOPROLOL TARTRATE 25 MG TABLET PO SCH ×3 (06:20→21:18)
[2017-05-04 07:46] VITALS: BP 137/71
[2017-05-04] MEDS: ZINC SULFATE 220 MG CAPSULE PO SCH ×3 (08:00→16:47)
[2017-05-04] MEDS: SPIRONOLACTONE 100 MG TABLET PO SCH (08:09)
[2017-05-04] MEDS: RIFAXIMIN 550 MG TABLET PO SCH ×2 (08:09→21:24)
[2017-05-04] MEDS: MULTIVITAMINS/MINERALS TABLET PO SCH (08:09)
[2017-05-04] MEDS: NICOTINE 14MG/24 HR PATCH.TD24 TD SCH (08:09)
[2017-05-04] MEDS: FAMOTIDINE 20 MG/2 ML IVPush SCH ×2 (08:09→21:24)
[2017-05-04] MEDS: THIAMINE 100MG TABLET PO SCH (08:10)
[2017-05-04] MEDS: FUROSEMIDE 40 MG TABLET PO SCH (08:10)
[2017-05-04] MEDS: TAMSULOSIN 0.4 MG CAP.ER.24H PO SCH (08:11)
[2017-05-04] MEDS: FOLIC ACID 1 MG TABLET PO SCH (08:11)
[2017-05-04] MEDS: SODIUM CHLORIDE FLUSH 10ML SYR IVF SCH ×2 (08:11→21:24)
[2017-05-04 12:39] LABS: CLOSTRIDIUM DIFFICILE ANTIGEN NEGATIVE; CLOSTRIDIUM DIFFICILE TOXIN NEGATIVE (Negative)
[2017-05-04 13:40] VITALS: BP 110/78
[2017-05-04 14:32] LABS: ALANINE AMINOTRANSFERASE 48 U/L (12-78); ALBUMIN 1.5 g/dL (3.4-5.0); ANION GAP 5 mmol/L (5-15); CHLORIDE 121 mmol/L (98-107); CREATININE 1.08 mg/dL (0.7-1.3)
[2017-05-04 14:34] LABS: ALKALINE PHOSPHATASE 196 U/L (45-117); BILIRUBIN,TOTAL 2.6 mg/dL (0.2-1.0); TOTAL PROTEIN 6.8 g/dL (6.4-8.2)
[2017-05-04 19:17] VITALS: BP 107/72
[2017-05-05 01:10] VITALS: BP 115/78
[2017-05-05] MEDS: PIPERACILLIN/TAZO 3.375 GM in DEXTROSE 5% 50 ML IV SCH ×3 (01:40→15:09)
[2017-05-05] MEDS: VANCOMYCIN 1,600 MG in SODIUM CHLORIDE 0.9% 250 ML IV SCH (05:56)
[2017-05-05] MEDS: LACTULOSE 20 GM/30 ML UDC PO SCH ×4 (05:56→22:02)
[2017-05-05] MEDS: METOPROLOL TARTRATE 25 MG TABLET PO SCH ×3 (05:56→22:03)
[2017-05-05] MEDS: THIAMINE 100MG TABLET PO SCH (08:36)
[2017-05-05] MEDS: RIFAXIMIN 550 MG TABLET PO SCH ×2 (08:36→22:02)
[2017-05-05] MEDS: FOLIC ACID 1 MG TABLET PO SCH (08:36)
[2017-05-05] MEDS: MULTIVITAMINS/MINERALS TABLET PO SCH (08:36)
[2017-05-05] MEDS: ZINC SULFATE 220 MG CAPSULE PO SCH ×3 (08:36→15:12)
[2017-05-05] MEDS: SPIRONOLACTONE 100 MG TABLET PO SCH (08:36)
[2017-05-05] MEDS: NICOTINE 14MG/24 HR PATCH.TD24 TD SCH (08:37)
[2017-05-05] MEDS: FUROSEMIDE 40 MG TABLET PO SCH (08:37)
[2017-05-05] MEDS: MAGNESIUM CARBONATE 54 MG/5 ML ORAL SOL NG SCH ×2 (08:38→22:02)
[2017-05-05] MEDS: FAMOTIDINE 20 MG/2 ML IVPush SCH ×2 (08:38→22:01)
[2017-05-05] MEDS: SODIUM CHLORIDE FLUSH 10ML SYR IVF SCH ×2 (08:40→22:00)
[2017-05-05 08:49] VITALS: BP 115/71
[2017-05-05] MEDS: TAMSULOSIN 0.4 MG CAP.ER.24H PO SCH (09:00)
[2017-05-05] MEDS: MULTIVIT.W/IRON, MINERALS ORAL SOL PO SCH (10:18)
[2017-05-05] MEDS ORDERED: DEXTROSE 5% 1,000 ML IV SCH (12:00)
[2017-05-05 15:06] VITALS: BP 136/77
[2017-05-05] MEDS ORDERED: FUROSEMIDE 20 MG/2 ML IV ONE (18:00)
[2017-05-05] MEDS ORDERED: GUAIFENESIN 200 MG TABLET PO SCH (18:00)
[2017-05-05 18:29] VITALS: BP 108/58
[2017-05-05 19:55] VITALS: BP 129/79
[2017-05-05] MEDS: GUAIFENESIN 100 MG/5 ML, 5ML UDC PO SCH (22:02)
[2017-05-05] MEDS: PIPERACILLIN/TAZO/PMX 3.375GM 50 ML IV SCH (22:03)
[2017-05-05 22:08] VITALS: BP 121/78
[2017-05-06 01:20] VITALS: BP 120/76
[2017-05-06] MEDS ORDERED: PIPERACILLIN/TAZO/PMX 3.375GM 50 ML IV SCH (02:00)
[2017-05-06] MEDS ORDERED: ALBUTEROL/IPRATROPIUM 2.5MG/0.5MG, 3 ML ONE (02:54)
[2017-05-06] MEDS ORDERED: ALBUTEROL/IPRATROPIUM 2.5MG/0.5MG, 3 ML NPPB ONE (03:00)
[2017-05-06] MEDS: PIPERACILLIN/TAZO/PMX 3.375GM 50 ML IV SCH ×3 (04:08→17:40)
[2017-05-06 05:14] LABS: MEAN CORPUSCULAR HGB CONC 33.8 g/dL (33.2-36.2); MEAN CORPUSCULAR VOLUME 115.5 fL (81-97); MEAN PLATELET VOLUME 9.5 fL (7.4-10.4); PLATELET COUNT 100 x10^3/uL (130-400); RED BLOOD COUNT 3.51 x10^6/uL (4.38-5.82); RED CELL DISTRIBUTION WIDTH 14.8 % (9.4-14.8)
[2017-05-06 05:24] LABS: ALBUMIN 1.6 g/dL (3.4-5.0); ANION GAP 6 mmol/L (5-15); CHLORIDE 119 mmol/L (98-107)
[2017-05-06 05:26] LABS: ALANINE AMINOTRANSFERASE 48 U/L (12-78); ALKALINE PHOSPHATASE 173 U/L (45-117); BILIRUBIN,TOTAL 2.7 mg/dL (0.2-1.0); TOTAL PROTEIN 7.7 g/dL (6.4-8.2)
[2017-05-06] MEDS: VANCOMYCIN 1,600 MG in SODIUM CHLORIDE 0.9% 250 ML IV SCH (05:55)
[2017-05-06] MEDS: LACTULOSE 20 GM/30 ML UDC PO SCH ×4 (05:55→22:32)
[2017-05-06] MEDS: GUAIFENESIN 100 MG/5 ML, 5ML UDC PO SCH ×4 (05:55→22:32)
[2017-05-06] MEDS: METOPROLOL TARTRATE 25 MG TABLET PO SCH ×4 (05:56→22:00)
[2017-05-06 06:06] LABS: BASOPHILS # (AUTO) 0.04 x10^3/uL (0-0.1); BASOPHILS % (AUTO) 0 % (0-1); EOSINOPHILS # (AUTO) 0.25 x10^3/uL (0-0.4); EOSINOPHILS % (AUTO) 3 % (1-7); LYMPHOCYTES # (AUTO) 1.06 x10^3/uL (1-3.4); LYMPHOCYTES % (AUTO) 11 % (22-44); MD SCAN; MONOCYTES % (AUTO) 11 % (2-9); NEUTROPHILS % (AUTO) 75 % (42-75)
[2017-05-06] MEDS: TAMSULOSIN 0.4 MG CAP.ER.24H PO SCH (07:46)
[2017-05-06] MEDS: ZINC SULFATE 220 MG CAPSULE PO SCH ×3 (07:46→16:41)
[2017-05-06 08:00] VITALS: BP 122/77
[2017-05-06] MEDS: SPIRONOLACTONE 100 MG TABLET PO SCH (10:14)
[2017-05-06] MEDS: NICOTINE 14MG/24 HR PATCH.TD24 TD SCH (10:14)
[2017-05-06] MEDS: SODIUM CHLORIDE FLUSH 10ML SYR IVF SCH ×2 (10:14→22:33)
[2017-05-06] MEDS: MAGNESIUM CARBONATE 54 MG/5 ML ORAL SOL NG SCH ×2 (10:14→22:31)
[2017-05-06] MEDS: RIFAXIMIN 550 MG TABLET PO SCH ×2 (10:15→22:33)
[2017-05-06] MEDS: FOLIC ACID 1 MG TABLET PO SCH (10:15)
[2017-05-06] MEDS: MULTIVIT.W/IRON, MINERALS ORAL SOL PO SCH (10:15)
[2017-05-06] MEDS: FAMOTIDINE 20 MG/2 ML IVPush SCH ×2 (10:15→22:32)
[2017-05-06] MEDS: THIAMINE 100MG TABLET PO SCH (10:15)
[2017-05-06] MEDS: FUROSEMIDE 40 MG TABLET PO SCH (10:15)
[2017-05-06] MEDS ORDERED: DEXTROSE 5% 1,000 ML IV SCH (12:00)
[2017-05-06 13:31] VITALS: BP 117/80
[2017-05-06] MEDS ORDERED: METOPROLOL 1 MG/ML, 5ML IVPush ONE (15:30)
[2017-05-06] MEDS ORDERED: ALBUMIN HUMAN 25% 200 ML IV ONE (18:00)
[2017-05-06 18:54] VITALS: BP 111/79
[2017-05-06 22:40] VITALS: BP 107/65
[2017-05-07 00:35] VITALS: BP 114/70
[2017-05-07] MEDS: PIPERACILLIN/TAZO/PMX 3.375GM 50 ML IV SCH ×4 (01:19→21:18)
[2017-05-07 05:15] LABS: ALANINE AMINOTRANSFERASE 32 U/L (12-78); ANION GAP 7 mmol/L (5-15); CHLORIDE 123 mmol/L (98-107); CREATININE 1.16 mg/dL (0.7-1.3)
[2017-05-07 05:17] LABS: ALKALINE PHOSPHATASE 94 U/L (45-117); BILIRUBIN,TOTAL 3.1 mg/dL (0.2-1.0); TOTAL PROTEIN 6.8 g/dL (6.4-8.2)
[2017-05-07 05:32] LABS: MEAN CORPUSCULAR HEMOGLOBIN 38.3 pg (27.5-34.5); MEAN CORPUSCULAR HGB CONC 33.4 g/dL (33.2-36.2); MEAN CORPUSCULAR VOLUME 114.7 fL (81-97); RED BLOOD COUNT 2.93 x10^6/uL (4.38-5.82); RED CELL DISTRIBUTION WIDTH 15.2 % (9.4-14.8)
[2017-05-07] MEDS: METOPROLOL TARTRATE 25 MG TABLET PO SCH ×3 (06:00→22:25)
[2017-05-07 06:05] LABS: BASOPHILS # (AUTO) 0.08 x10^3/uL (0-0.1); BASOPHILS % (AUTO) 1 % (0-1); EOSINOPHILS # (AUTO) 0.13 x10^3/uL (0-0.4); EOSINOPHILS % (AUTO) 2 % (1-7); LYMPHOCYTES # (AUTO) 0.73 x10^3/uL (1-3.4); LYMPHOCYTES % (AUTO) 9 % (22-44); MD SCAN; MEAN PLATELET VOLUME 9.5 fL (7.4-10.4); MONOCYTES # (AUTO) 0.74 x10^3/uL (0.2-0.8); MONOCYTES % (AUTO) 9 % (2-9); NEUTROPHILS # (AUTO) 6.43 x10^3/uL (1.8-6.8); NEUTROPHILS % (AUTO) 79 % (42-75); PLATELET COUNT 72 x10^3/uL (130-400)
[2017-05-07 06:36] VITALS: BP 107/68
[2017-05-07] MEDS: VANCOMYCIN 1,600 MG in SODIUM CHLORIDE 0.9% 250 ML IV SCH (06:38)
[2017-05-07] MEDS: GUAIFENESIN 100 MG/5 ML, 5ML UDC PO SCH ×4 (06:38→20:56)
[2017-05-07] MEDS: LACTULOSE 20 GM/30 ML UDC PO SCH ×4 (06:38→20:56)
[2017-05-07 07:15] VITALS: BP 112/66
[2017-05-07] MEDS: THIAMINE 100MG TABLET PO SCH (10:05)
[2017-05-07] MEDS: FOLIC ACID 1 MG TABLET PO SCH (10:05)
[2017-05-07] MEDS: FUROSEMIDE 40 MG TABLET PO SCH (10:05)
[2017-05-07] MEDS: SPIRONOLACTONE 100 MG TABLET PO SCH (10:05)
[2017-05-07] MEDS: RIFAXIMIN 550 MG TABLET PO SCH ×2 (10:05→20:56)
[2017-05-07] MEDS: MULTIVIT.W/IRON, MINERALS ORAL SOL PO SCH (10:06)
[2017-05-07] MEDS: TAMSULOSIN 0.4 MG CAP.ER.24H PO SCH (10:06)
[2017-05-07] MEDS: MAGNESIUM CARBONATE 54 MG/5 ML ORAL SOL NG SCH ×2 (10:06→21:18)
[2017-05-07] MEDS: ZINC SULFATE 220 MG CAPSULE PO SCH ×3 (10:06→22:25)
[2017-05-07] MEDS: SODIUM CHLORIDE FLUSH 10ML SYR IVF SCH ×2 (10:07→20:48)
[2017-05-07] MEDS: FAMOTIDINE 20 MG/2 ML IVPush SCH ×2 (10:25→20:57)
[2017-05-07] MEDS: NICOTINE 14MG/24 HR PATCH.TD24 TD SCH (10:25)
[2017-05-07] MEDS ORDERED: DEXTROSE 5% 1,000 ML IV SCH ×2 (12:00)
[2017-05-07 12:19] VITALS: BP 117/78
[2017-05-07] MEDS ORDERED: ONDANSETRON 2MG/ML, 2ML IVPush PRN (15:45)
[2017-05-07] MEDS ORDERED: ONDANSETRON ODT 4 MG PO PRN (16:00)
[2017-05-07 19:59] VITALS: BP 109/72
[2017-05-07 22:21] VITALS: BP 108/65
[2017-05-08 01:11] VITALS: BP 113/65
[2017-05-08] MEDS: PIPERACILLIN/TAZO/PMX 3.375GM 50 ML IV SCH ×4 (03:25→21:53)
[2017-05-08 05:15] VITALS: BP 111/68
[2017-05-08] MEDS: LACTULOSE 20 GM/30 ML UDC PO SCH ×4 (05:25→21:39)
[2017-05-08] MEDS: GUAIFENESIN 100 MG/5 ML, 5ML UDC PO SCH ×4 (05:25→21:39)
[2017-05-08 05:30] LABS: ALBUMIN 1.8 g/dL (3.4-5.0); ANION GAP 6 mmol/L (5-15); CALCIUM 8.1 mg/dL (8.5-10.1); CHLORIDE 120 mmol/L (98-107)
[2017-05-08] MEDS: METOPROLOL TARTRATE 25 MG TABLET PO SCH ×2 (05:30→13:23)
[2017-05-08 05:33] LABS: ALANINE AMINOTRANSFERASE 42 U/L (12-78); ALKALINE PHOSPHATASE 129 U/L (45-117); BILIRUBIN,TOTAL 2.7 mg/dL (0.2-1.0); TOTAL PROTEIN 6.9 g/dL (6.4-8.2)
[2017-05-08] MEDS: VANCOMYCIN 1,600 MG in SODIUM CHLORIDE 0.9% 250 ML IV SCH (05:51)
[2017-05-08 06:13] LABS: BASOPHILS # (AUTO) 0.06 x10^3/uL (0-0.1); BASOPHILS % (AUTO) 1 % (0-1); EOSINOPHILS # (AUTO) 0.24 x10^3/uL (0-0.4); EOSINOPHILS % (AUTO) 4 % (1-7); LYMPHOCYTES # (AUTO) 0.65 x10^3/uL (1-3.4); LYMPHOCYTES % (AUTO) 11 % (22-44); MD SCAN; MEAN CORPUSCULAR HEMOGLOBIN 37.9 pg (27.5-34.5); MEAN CORPUSCULAR HGB CONC 33.2 g/dL (33.2-36.2); MEAN CORPUSCULAR VOLUME 114.2 fL (81-97); MEAN PLATELET VOLUME 10.2 fL (7.4-10.4); MONOCYTES # (AUTO) 0.34 x10^3/uL (0.2-0.8); MONOCYTES % (AUTO) 6 % (2-9); NEUTROPHILS # (AUTO) 4.71 x10^3/uL (1.8-6.8); NEUTROPHILS % (AUTO) 79 % (42-75); PLATELET COUNT 66 x10^3/uL (130-400); RED BLOOD COUNT 3.32 x10^6/uL (4.38-5.82)
[2017-05-08 06:43] VITALS: BP 115/69
[2017-05-08] MEDS: MULTIVIT.W/IRON, MINERALS ORAL SOL PO SCH (09:11)
[2017-05-08] MEDS: MAGNESIUM CARBONATE 54 MG/5 ML ORAL SOL NG SCH ×2 (09:12→21:37)
[2017-05-08] MEDS: RIFAXIMIN 550 MG TABLET PO SCH ×2 (09:16→21:36)
[2017-05-08] MEDS: ZINC SULFATE 220 MG CAPSULE PO SCH ×3 (09:17→21:37)
[2017-05-08] MEDS: FUROSEMIDE 40 MG TABLET PO SCH (09:19)
[2017-05-08] MEDS: SPIRONOLACTONE 100 MG TABLET PO SCH (09:19)
[2017-05-08] MEDS: FOLIC ACID 1 MG TABLET PO SCH (09:19)
[2017-05-08] MEDS: THIAMINE 100MG TABLET PO SCH (09:20)
[2017-05-08] MEDS: TAMSULOSIN 0.4 MG CAP.ER.24H PO SCH (09:20)
[2017-05-08] MEDS: FAMOTIDINE 20 MG/2 ML IVPush SCH ×2 (09:22→21:53)
[2017-05-08] MEDS: SODIUM CHLORIDE FLUSH 10ML SYR IVF SCH ×2 (09:22→21:53)
[2017-05-08] MEDS: NICOTINE 14MG/24 HR PATCH.TD24 TD SCH (09:31)
[2017-05-08 13:05] VITALS: BP 107/62
[2017-05-08] MEDS: DEXTROSE 5% 1,000 ML IV SCH (13:31)
[2017-05-08] MEDS ORDERED: METOPROLOL TARTRATE 25 MG TABLET PO SCH (21:00)
[2017-05-08] MEDS ORDERED: GUAIFENESIN 100 MG/5 ML, 10ML UDC ONE (21:05)
[2017-05-08 21:28] VITALS: BP 99/63
[2017-05-09 00:36] VITALS: BP 123/82
[2017-05-09] MEDS: DEXTROSE 5% 1,000 ML IV SCH (02:21)
[2017-05-09] MEDS: PIPERACILLIN/TAZO/PMX 3.375GM 50 ML IV SCH ×4 (03:48→23:37)
[2017-05-09 05:35] LABS: CHLORIDE 114 mmol/L (98-107)
[2017-05-09 05:46] LABS: ANION GAP 8 mmol/L (5-15); CALCIUM 7.9 mg/dL (8.5-10.1); CREATININE 1.07 mg/dL (0.7-1.3); VANCOMYCIN,TROUGH 14.3 mcg/mL (5.0-10.0)
[2017-05-09] MEDS: VANCOMYCIN 1,600 MG in SODIUM CHLORIDE 0.9% 250 ML IV SCH (05:51)
[2017-05-09] MEDS: LACTULOSE 20 GM/30 ML UDC PO SCH ×4 (05:55→20:59)
[2017-05-09] MEDS: GUAIFENESIN 100 MG/5 ML, 5ML UDC PO SCH ×4 (05:55→21:00)
[2017-05-09] MEDS ORDERED: GUAIFENESIN 100 MG/5 ML, 10ML UDC ONE (09:16)
[2017-05-09] MEDS: MULTIVIT.W/IRON, MINERALS ORAL SOL PO SCH (09:42)
[2017-05-09] MEDS: SPIRONOLACTONE 100 MG TABLET PO SCH (09:43)
[2017-05-09] MEDS: RIFAXIMIN 550 MG TABLET PO SCH ×2 (09:43→21:00)
[2017-05-09] MEDS: TAMSULOSIN 0.4 MG CAP.ER.24H PO SCH (09:44)
[2017-05-09] MEDS: THIAMINE 100MG TABLET PO SCH (09:44)
[2017-05-09] MEDS: METOPROLOL TARTRATE 50 MG TABLET PO SCH ×2 (09:44→21:00)
[2017-05-09] MEDS: FOLIC ACID 1 MG TABLET PO SCH (09:44)
[2017-05-09] MEDS: ZINC SULFATE 220 MG CAPSULE PO SCH ×3 (09:44→17:28)
[2017-05-09] MEDS: FUROSEMIDE 40 MG TABLET PO SCH (09:45)
[2017-05-09] MEDS: NICOTINE 14MG/24 HR PATCH.TD24 TD SCH (09:45)
[2017-05-09] MEDS: FAMOTIDINE 20 MG/2 ML IVPush SCH ×2 (09:45→20:59)
[2017-05-09] MEDS: SODIUM CHLORIDE FLUSH 10ML SYR IVF SCH ×2 (09:45→20:59)
[2017-05-09] MEDS: MAGNESIUM CARBONATE 54 MG/5 ML ORAL SOL NG SCH ×2 (09:46→20:59)
[2017-05-09 09:47] VITALS: BP 104/68
[2017-05-09 15:00] VITALS: BP 95/64
[2017-05-09 18:44] VITALS: BP 100/65
[2017-05-09 20:57] VITALS: BP 109/75
[2017-05-10 01:38] VITALS: BP 110/73
[2017-05-10] MEDS: PIPERACILLIN/TAZO/PMX 3.375GM 50 ML IV SCH (04:47)
[2017-05-10] MEDS: VANCOMYCIN 1,600 MG in SODIUM CHLORIDE 0.9% 250 ML IV SCH (05:33)
[2017-05-10] MEDS: LACTULOSE 20 GM/30 ML UDC PO SCH ×2 (05:39→09:38)
[2017-05-10] MEDS: GUAIFENESIN 100 MG/5 ML, 5ML UDC PO SCH ×4 (05:40→21:33)
[2017-05-10 05:49] LABS: MEAN CORPUSCULAR HEMOGLOBIN 38.6 pg (27.5-34.5); MEAN CORPUSCULAR HGB CONC 33.9 g/dL (33.2-36.2); MEAN CORPUSCULAR VOLUME 113.8 fL (81-97); MEAN PLATELET VOLUME 10.9 fL (7.4-10.4); PLATELET COUNT 65 x10^3/uL (130-400); RED BLOOD COUNT 3.14 x10^6/uL (4.38-5.82)
[2017-05-10 06:11] LABS: ALBUMIN 1.6 g/dL (3.4-5.0); ANION GAP 7 mmol/L (5-15); CALCIUM 8.1 mg/dL (8.5-10.1); CHLORIDE 116 mmol/L (98-107)
[2017-05-10 06:14] LABS: ALANINE AMINOTRANSFERASE 39 U/L (12-78); ALKALINE PHOSPHATASE 125 U/L (45-117); BILIRUBIN,TOTAL 2.5 mg/dL (0.2-1.0); CREATININE 1.05 mg/dL (0.7-1.3); TOTAL PROTEIN 7.1 g/dL (6.4-8.2)
[2017-05-10 06:23] LABS: BASOPHILS # (AUTO) 0.06 x10^3/uL (0-0.1); BASOPHILS % (AUTO) 1 % (0-1); EOSINOPHILS % (AUTO) 5 % (1-7); LYMPHOCYTES # (AUTO) 0.69 x10^3/uL (1-3.4); LYMPHOCYTES % (AUTO) 12 % (22-44); MD SCAN; MONOCYTES # (AUTO) 0.44 x10^3/uL (0.2-0.8); MONOCYTES % (AUTO) 8 % (2-9); NEUTROPHILS # (AUTO) 4.08 x10^3/uL (1.8-6.8); NEUTROPHILS % (AUTO) 73 % (42-75)
[2017-05-10 07:47] VITALS: BP 99/61
[2017-05-10] MEDS: NICOTINE 14MG/24 HR PATCH.TD24 TD SCH (08:39)
[2017-05-10] MEDS: SPIRONOLACTONE 100 MG TABLET PO SCH (08:42)
[2017-05-10] MEDS: MAGNESIUM CARBONATE 54 MG/5 ML ORAL SOL NG SCH ×2 (08:42→21:33)
[2017-05-10] MEDS: MULTIVIT.W/IRON, MINERALS ORAL SOL PO SCH (08:42)
[2017-05-10] MEDS: ZINC SULFATE 220 MG CAPSULE PO SCH ×3 (08:42→17:12)
[2017-05-10] MEDS: RIFAXIMIN 550 MG TABLET PO SCH ×2 (08:43→21:33)
[2017-05-10] MEDS: FOLIC ACID 1 MG TABLET PO SCH (08:43)
[2017-05-10] MEDS: METOPROLOL TARTRATE 50 MG TABLET PO SCH (08:43)
[2017-05-10] MEDS: FUROSEMIDE 40 MG TABLET PO SCH (08:43)
[2017-05-10] MEDS: TAMSULOSIN 0.4 MG CAP.ER.24H PO SCH (08:43)
[2017-05-10] MEDS: SODIUM CHLORIDE FLUSH 10ML SYR IVF SCH ×2 (08:44→21:33)
[2017-05-10] MEDS: THIAMINE 100MG TABLET PO SCH (08:44)
[2017-05-10] MEDS: FAMOTIDINE 20 MG/2 ML IVPush SCH ×2 (08:44→21:33)
[2017-05-10 08:45] VITALS: BP 100/66
[2017-05-10] MEDS: ALBUMIN HUMAN 25% 100 ML IV SCH (12:04)
[2017-05-10 12:59] VITALS: BP 104/66
[2017-05-10 19:24] VITALS: BP 99/66
[2017-05-10 21:37] VITALS: BP 97/63
[2017-05-10] MEDS: METOPROLOL TARTRATE 25 MG TABLET PO SCH (21:38)
[2017-05-11 01:56] VITALS: BP 99/68
[2017-05-11] MEDS: GUAIFENESIN 100 MG/5 ML, 5ML UDC PO SCH ×4 (05:02→22:45)
[2017-05-11 05:22] LABS: MEAN CORPUSCULAR HEMOGLOBIN 37.6 pg (27.5-34.5); MEAN CORPUSCULAR HGB CONC 33.3 g/dL (33.2-36.2); MEAN CORPUSCULAR VOLUME 112.7 fL (81-97); RED BLOOD COUNT 3.16 x10^6/uL (4.38-5.82); RED CELL DISTRIBUTION WIDTH 14.8 % (9.4-14.8)
[2017-05-11 05:33] LABS: CALCIUM 8.2 mg/dL (8.5-10.1); CHLORIDE 116 mmol/L (98-107)
[2017-05-11 05:39] LABS: ALANINE AMINOTRANSFERASE 41 U/L (12-78); ALKALINE PHOSPHATASE 143 U/L (45-117); ANION GAP 8 mmol/L (5-15); BILIRUBIN,TOTAL 2.3 mg/dL (0.2-1.0); CREATININE 0.96 mg/dL (0.7-1.3)
[2017-05-11 05:57] LABS: BASOPHILS # (AUTO) 0.11 x10^3/uL (0-0.1); BASOPHILS % (AUTO) 2 % (0-1); EOSINOPHILS # (AUTO) 0.41 x10^3/uL (0-0.4); EOSINOPHILS % (AUTO) 6 % (1-7); LYMPHOCYTES # (AUTO) 1.08 x10^3/uL (1-3.4); LYMPHOCYTES % (AUTO) 16 % (22-44); MD SCAN; MEAN PLATELET VOLUME 11.4 fL (7.4-10.4); MONOCYTES # (AUTO) 0.99 x10^3/uL (0.2-0.8); MONOCYTES % (AUTO) 15 % (2-9); NEUTROPHILS # (AUTO) 4.18 x10^3/uL (1.8-6.8); NEUTROPHILS % (AUTO) 62 % (42-75); PLATELET COUNT 77 x10^3/uL (130-400)
[2017-05-11 07:15] VITALS: BP 108/73
[2017-05-11] MEDS: NICOTINE 14MG/24 HR PATCH.TD24 TD SCH (09:36)
[2017-05-11] MEDS: ZINC SULFATE 220 MG CAPSULE PO SCH ×3 (09:36→22:45)
[2017-05-11] MEDS: THIAMINE 100MG TABLET PO SCH (09:37)
[2017-05-11] MEDS: METOPROLOL TARTRATE 25 MG TABLET PO SCH ×2 (09:37→22:46)
[2017-05-11] MEDS: RIFAXIMIN 550 MG TABLET PO SCH ×2 (09:37→22:45)
[2017-05-11] MEDS: FUROSEMIDE 40 MG TABLET PO SCH (09:37)
[2017-05-11] MEDS: FOLIC ACID 1 MG TABLET PO SCH (09:37)
[2017-05-11] MEDS: MAGNESIUM CARBONATE 54 MG/5 ML ORAL SOL NG SCH ×2 (09:38→22:45)
[2017-05-11] MEDS: DIGOXIN 0.125 MG TABLET PO SCH (09:38)
[2017-05-11] MEDS: SPIRONOLACTONE 100 MG TABLET PO SCH (09:38)
[2017-05-11] MEDS: TAMSULOSIN 0.4 MG CAP.ER.24H PO SCH (09:38)
[2017-05-11] MEDS: MULTIVIT.W/IRON, MINERALS ORAL SOL PO SCH (09:39)
[2017-05-11] MEDS: FAMOTIDINE 20 MG/2 ML IVPush SCH ×2 (09:39→22:45)
[2017-05-11] MEDS: SODIUM CHLORIDE FLUSH 10ML SYR IVF SCH ×2 (09:39→22:46)
[2017-05-11] MEDS: ALBUMIN HUMAN 25% 100 ML IV SCH (09:39)
[2017-05-11 12:25] VITALS: BP 96/64
[2017-05-11] MEDS ORDERED: DIGOXIN 0.25 MG/ML, 2ML IVPush ONE (17:00)
[2017-05-11 19:04] VITALS: BP 116/72
[2017-05-12 01:35] VITALS: BP 114/79
[2017-05-12 05:04] LABS: MEAN CORPUSCULAR HEMOGLOBIN 37.9 pg (27.5-34.5); MEAN CORPUSCULAR HGB CONC 34.1 g/dL (33.2-36.2); MEAN CORPUSCULAR VOLUME 111.1 fL (81-97); MEAN PLATELET VOLUME 11.1 fL (7.4-10.4); PLATELET COUNT 84 x10^3/uL (130-400); RED BLOOD COUNT 3.11 x10^6/uL (4.38-5.82); RED CELL DISTRIBUTION WIDTH 14.8 % (9.4-14.8)
[2017-05-12 05:11] LABS: ALBUMIN 2.1 g/dL (3.4-5.0); CALCIUM 8.4 mg/dL (8.5-10.1); CHLORIDE 116 mmol/L (98-107)
[2017-05-12 05:26] LABS: ALANINE AMINOTRANSFERASE 49 U/L (12-78); ALKALINE PHOSPHATASE 159 U/L (45-117); ANION GAP 6 mmol/L (5-15); BILIRUBIN,TOTAL 2.6 mg/dL (0.2-1.0); TOTAL PROTEIN 7.2 g/dL (6.4-8.2)
[2017-05-12 05:49] LABS: BASOPHILS # (AUTO) 0.03 x10^3/uL (0-0.1); BASOPHILS % (AUTO) 0 % (0-1); EOSINOPHILS # (AUTO) 0.35 x10^3/uL (0-0.4); EOSINOPHILS % (AUTO) 5 % (1-7); LYMPHOCYTES # (AUTO) 0.98 x10^3/uL (1-3.4); LYMPHOCYTES % (AUTO) 14 % (22-44); MD SCAN; MONOCYTES # (AUTO) 1.16 x10^3/uL (0.2-0.8); MONOCYTES % (AUTO) 16 % (2-9); NEUTROPHILS # (AUTO) 4.77 x10^3/uL (1.8-6.8); NEUTROPHILS % (AUTO) 66 % (42-75)
[2017-05-12] MEDS: GUAIFENESIN 100 MG/5 ML, 5ML UDC PO SCH ×3 (06:22→09:46)
[2017-05-12 07:25] VITALS: BP 125/80
[2017-05-12] MEDS: NICOTINE 14MG/24 HR PATCH.TD24 TD SCH (09:41)
[2017-05-12] MEDS: FUROSEMIDE 40 MG TABLET PO SCH (09:42)
[2017-05-12] MEDS: FOLIC ACID 1 MG TABLET PO SCH (09:42)
[2017-05-12] MEDS: RIFAXIMIN 550 MG TABLET PO SCH ×2 (09:42→21:00)
[2017-05-12] MEDS: ZINC SULFATE 220 MG CAPSULE PO SCH ×3 (09:43→20:59)
[2017-05-12] MEDS: TAMSULOSIN 0.4 MG CAP.ER.24H PO SCH (09:43)
[2017-05-12] MEDS: THIAMINE 100MG TABLET PO SCH (09:43)
[2017-05-12] MEDS: FAMOTIDINE 20 MG/2 ML IVPush SCH ×2 (09:43→20:59)
[2017-05-12] MEDS: DIGOXIN 0.125 MG TABLET PO SCH (09:43)
[2017-05-12] MEDS: SPIRONOLACTONE 100 MG TABLET PO SCH (09:43)
[2017-05-12] MEDS: METOPROLOL TARTRATE 25 MG TABLET PO SCH ×2 (09:43→21:00)
[2017-05-12] MEDS: SODIUM CHLORIDE FLUSH 10ML SYR IVF SCH ×2 (09:44→20:59)
[2017-05-12] MEDS: MULTIVIT.W/IRON, MINERALS ORAL SOL PO SCH (09:45)
[2017-05-12] MEDS: MAGNESIUM CARBONATE 54 MG/5 ML ORAL SOL NG SCH ×2 (09:45→21:00)
[2017-05-12] MEDS: ALBUMIN HUMAN 25% 100 ML IV SCH (09:46)
[2017-05-12 09:47] VITALS: BP 115/74
[2017-05-12] MEDS ORDERED: LIDOCAINE-MPF 1%, 5ML ONE (12:07)
[2017-05-12 15:51] VITALS: BP 104/55
[2017-05-12 18:43] VITALS: BP 128/61
[2017-05-12 20:56] VITALS: BP 104/68
[2017-05-13 03:40] VITALS: BP 96/61
[2017-05-13 08:23] VITALS: BP 155/90
[2017-05-13 08:46] LABS: MEAN CORPUSCULAR HEMOGLOBIN 37.7 pg (27.5-34.5); MEAN CORPUSCULAR HGB CONC 33.7 g/dL (33.2-36.2); MEAN CORPUSCULAR VOLUME 111.6 fL (81-97); MEAN PLATELET VOLUME 10.5 fL (7.4-10.4); PLATELET COUNT 93 x10^3/uL (130-400); RED CELL DISTRIBUTION WIDTH 14.9 % (9.4-14.8)
[2017-05-13 08:47] LABS: ALBUMIN 2.3 g/dL (3.4-5.0); ANION GAP 9 mmol/L (5-15); CALCIUM 8.4 mg/dL (8.5-10.1); CHLORIDE 113 mmol/L (98-107)
[2017-05-13 08:51] LABS: ALANINE AMINOTRANSFERASE 55 U/L (12-78); ALKALINE PHOSPHATASE 153 U/L (45-117); BILIRUBIN,TOTAL 2.5 mg/dL (0.2-1.0); CREATININE 0.91 mg/dL (0.7-1.3); TOTAL PROTEIN 7.3 g/dL (6.4-8.2)
[2017-05-13] MEDS: THIAMINE 100MG TABLET PO SCH (09:00)
[2017-05-13] MEDS: FAMOTIDINE 20 MG/2 ML IVPush SCH ×2 (09:00→20:11)
[2017-05-13 09:34] LABS: BASOPHILS # (AUTO) 0.03 x10^3/uL (0-0.1); BASOPHILS % (AUTO) 1 % (0-1); EOSINOPHILS # (AUTO) 0.44 x10^3/uL (0-0.4); EOSINOPHILS % (AUTO) 6 % (1-7); LYMPHOCYTES # (AUTO) 1.04 x10^3/uL (1-3.4); LYMPHOCYTES % (AUTO) 15 % (22-44); MD MORPH REVIEW ONLY; MONOCYTES # (AUTO) 1.09 x10^3/uL (0.2-0.8); MONOCYTES % (AUTO) 15 % (2-9); NEUTROPHILS # (AUTO) 4.59 x10^3/uL (1.8-6.8); NEUTROPHILS % (AUTO) 64 % (42-75)
[2017-05-13 09:38] LABS: <PLATELET ESTIMATE> DECREASED; ANISOCYTOSIS 1+; LARGE PLATELETS 1+
[2017-05-13] MEDS: MAGNESIUM CARBONATE 54 MG/5 ML ORAL SOL NG SCH ×2 (11:35→20:11)
[2017-05-13] MEDS: MULTIVIT.W/IRON, MINERALS ORAL SOL PO SCH (11:35)
[2017-05-13] MEDS: RIFAXIMIN 550 MG TABLET PO SCH ×2 (11:36→20:11)
[2017-05-13] MEDS: SPIRONOLACTONE 100 MG TABLET PO SCH (11:36)
[2017-05-13] MEDS: FOLIC ACID 1 MG TABLET PO SCH (11:36)
[2017-05-13] MEDS: FUROSEMIDE 40 MG TABLET PO SCH (11:37)
[2017-05-13] MEDS: ZINC SULFATE 220 MG CAPSULE PO SCH ×4 (11:37→20:11)
[2017-05-13] MEDS: DIGOXIN 0.125 MG TABLET PO SCH (11:37)
[2017-05-13] MEDS: TAMSULOSIN 0.4 MG CAP.ER.24H PO SCH (11:37)
[2017-05-13] MEDS: METOPROLOL TARTRATE 25 MG TABLET PO SCH ×2 (11:38→20:18)
[2017-05-13] MEDS: ALBUMIN HUMAN 25% 100 ML IV SCH (11:39)
[2017-05-13] MEDS: SODIUM CHLORIDE FLUSH 10ML SYR IVF SCH ×2 (11:40→20:11)
[2017-05-13 14:00] VITALS: BP 102/64
[2017-05-13 20:12] VITALS: BP 107/65
[2017-05-14 01:20] VITALS: BP 91/40
[2017-05-14 05:32] LABS: MEAN CORPUSCULAR HEMOGLOBIN 38.2 pg (27.5-34.5); MEAN CORPUSCULAR HGB CONC 33.6 g/dL (33.2-36.2); MEAN CORPUSCULAR VOLUME 113.8 fL (81-97); MEAN PLATELET VOLUME 10.5 fL (7.4-10.4); PLATELET COUNT 103 x10^3/uL (130-400); RED BLOOD COUNT 3.04 x10^6/uL (4.38-5.82); RED CELL DISTRIBUTION WIDTH 14.8 % (9.4-14.8)
[2017-05-14 05:38] LABS: ALBUMIN 2.6 g/dL (3.4-5.0); ANION GAP 7 mmol/L (5-15); CALCIUM 8.6 mg/dL (8.5-10.1); CHLORIDE 111 mmol/L (98-107)
[2017-05-14 05:44] LABS: ALANINE AMINOTRANSFERASE 53 U/L (12-78); ALKALINE PHOSPHATASE 172 U/L (45-117); BILIRUBIN,TOTAL 2.7 mg/dL (0.2-1.0); CREATININE 0.93 mg/dL (0.7-1.3); TOTAL PROTEIN 7.3 g/dL (6.4-8.2)
[2017-05-14 06:44] LABS: BASOPHILS # (AUTO) 0.09 x10^3/uL (0-0.1); BASOPHILS % (AUTO) 2 % (0-1); EOSINOPHILS # (AUTO) 0.33 x10^3/uL (0-0.4); EOSINOPHILS % (AUTO) 6 % (1-7); LYMPHOCYTES # (AUTO) 0.85 x10^3/uL (1-3.4); LYMPHOCYTES % (AUTO) 15 % (22-44); MD SCAN; MONOCYTES # (AUTO) 0.69 x10^3/uL (0.2-0.8); MONOCYTES % (AUTO) 12 % (2-9); NEUTROPHILS % (AUTO) 66 % (42-75)
[2017-05-14 07:53] VITALS: BP 105/75
[2017-05-14] MEDS: FOLIC ACID 1 MG TABLET PO SCH (08:10)
[2017-05-14] MEDS: FAMOTIDINE 20 MG/2 ML IVPush SCH ×2 (08:10→20:05)
[2017-05-14] MEDS: METOPROLOL TARTRATE 25 MG TABLET PO SCH ×2 (08:10→20:04)
[2017-05-14] MEDS: MAGNESIUM CARBONATE 54 MG/5 ML ORAL SOL NG SCH ×2 (08:10→20:04)
[2017-05-14] MEDS: MULTIVIT.W/IRON, MINERALS ORAL SOL PO SCH (08:10)
[2017-05-14] MEDS: SPIRONOLACTONE 100 MG TABLET PO SCH (08:11)
[2017-05-14] MEDS: DIGOXIN 0.125 MG TABLET PO SCH (08:11)
[2017-05-14] MEDS: THIAMINE 100MG TABLET PO SCH (08:11)
[2017-05-14] MEDS: RIFAXIMIN 550 MG TABLET PO SCH ×2 (08:11→20:04)
[2017-05-14] MEDS: TAMSULOSIN 0.4 MG CAP.ER.24H PO SCH (08:11)
[2017-05-14] MEDS: FUROSEMIDE 40 MG TABLET PO SCH (08:12)
[2017-05-14] MEDS: SODIUM CHLORIDE FLUSH 10ML SYR IVF SCH ×2 (08:12→20:05)
[2017-05-14] MEDS: ALBUMIN HUMAN 25% 100 ML IV SCH (09:47)
[2017-05-14] MEDS: ZINC SULFATE 220 MG CAPSULE PO SCH ×2 (12:00→16:18)
[2017-05-14 15:57] VITALS: BP 102/64
[2017-05-14 19:30] VITALS: BP 110/71
[2017-05-14 20:01] VITALS: BP 105/68
[2017-05-15 04:50] VITALS: BP 106/64
[2017-05-15 05:06] LABS: MEAN CORPUSCULAR HEMOGLOBIN 37.2 pg (27.5-34.5); MEAN CORPUSCULAR HGB CONC 33.5 g/dL (33.2-36.2); MEAN PLATELET VOLUME 10.3 fL (7.4-10.4); PLATELET COUNT 93 x10^3/uL (130-400); RED BLOOD COUNT 3.03 x10^6/uL (4.38-5.82); RED CELL DISTRIBUTION WIDTH 14.4 % (9.4-14.8)
[2017-05-15 05:09] LABS: ALBUMIN 2.7 g/dL (3.4-5.0); ANION GAP 7 mmol/L (5-15); CALCIUM 8.5 mg/dL (8.5-10.1); CHLORIDE 109 mmol/L (98-107)
[2017-05-15 05:10] LABS: CREATININE 1.02 mg/dL (0.7-1.3)
[2017-05-15 06:26] LABS: BASOPHILS # (AUTO) 0.09 x10^3/uL (0-0.1); BASOPHILS % (AUTO) 1 % (0-1); EOSINOPHILS # (AUTO) 0.37 x10^3/uL (0-0.4); EOSINOPHILS % (AUTO) 6 % (1-7); LYMPHOCYTES # (AUTO) 0.96 x10^3/uL (1-3.4); LYMPHOCYTES % (AUTO) 14 % (22-44); MD SCAN; MONOCYTES # (AUTO) 0.88 x10^3/uL (0.2-0.8); MONOCYTES % (AUTO) 13 % (2-9); NEUTROPHILS # (AUTO) 4.44 x10^3/uL (1.8-6.8); NEUTROPHILS % (AUTO) 66 % (42-75)
[2017-05-15 07:32] VITALS: BP 94/58
[2017-05-15] MEDS: ALBUMIN HUMAN 25% 100 ML IV SCH (08:04)
[2017-05-15] MEDS: THIAMINE 100MG TABLET PO SCH (09:00)
[2017-05-15] MEDS: TAMSULOSIN 0.4 MG CAP.ER.24H PO SCH (09:55)
[2017-05-15] MEDS: ZINC SULFATE 220 MG CAPSULE PO SCH ×3 (09:55→17:32)
[2017-05-15] MEDS: FAMOTIDINE 20 MG/2 ML IVPush SCH ×2 (09:56→21:11)
[2017-05-15] MEDS: FOLIC ACID 1 MG TABLET PO SCH (09:56)
[2017-05-15] MEDS: SODIUM CHLORIDE FLUSH 10ML SYR IVF SCH ×2 (09:56→21:11)
[2017-05-15] MEDS: DIGOXIN 0.125 MG TABLET PO SCH (09:56)
[2017-05-15] MEDS: METOPROLOL TARTRATE 25 MG TABLET PO SCH ×2 (09:58→21:10)
[2017-05-15] MEDS: MULTIVIT.W/IRON, MINERALS ORAL SOL PO SCH (09:59)
[2017-05-15] MEDS: RIFAXIMIN 550 MG TABLET PO SCH ×2 (09:59→21:09)
[2017-05-15] MEDS: SPIRONOLACTONE 100 MG TABLET PO SCH (09:59)
[2017-05-15] MEDS: MAGNESIUM CARBONATE 54 MG/5 ML ORAL SOL NG SCH ×2 (09:59→21:10)
[2017-05-15] MEDS: FUROSEMIDE 40 MG TABLET PO SCH (09:59)
[2017-05-15 12:56] VITALS: BP 84/60
[2017-05-15 19:50] VITALS: BP 96/84
[2017-05-16 00:09] VITALS: BP 98/59
[2017-05-16 05:23] LABS: CHLORIDE 109 mmol/L (98-107)
[2017-05-16 05:38] LABS: ALANINE AMINOTRANSFERASE 57 U/L (12-78); ALBUMIN 2.9 g/dL (3.4-5.0); ALKALINE PHOSPHATASE 173 U/L (45-117); ANION GAP 8 mmol/L (5-15); BILIRUBIN,TOTAL 2.9 mg/dL (0.2-1.0); CALCIUM 8.7 mg/dL (8.5-10.1); CREATININE 1.08 mg/dL (0.7-1.3); TOTAL PROTEIN 7.9 g/dL (6.4-8.2)
[2017-05-16 07:16] VITALS: BP 97/63
[2017-05-16] MEDS: ZINC SULFATE 220 MG CAPSULE PO SCH ×3 (08:00→21:40)
[2017-05-16] MEDS: ALBUMIN HUMAN 25% 100 ML IV SCH (11:58)
[2017-05-16 13:43] VITALS: BP 108/72
[2017-05-16] MEDS: SODIUM CHLORIDE FLUSH 10ML SYR IVF SCH ×2 (14:19→20:54)
[2017-05-16] MEDS: RIFAXIMIN 550 MG TABLET PO SCH ×2 (14:20→21:06)
[2017-05-16] MEDS: FOLIC ACID 1 MG TABLET PO SCH (14:20)
[2017-05-16] MEDS: SPIRONOLACTONE 100 MG TABLET PO SCH (14:20)
[2017-05-16] MEDS: DIGOXIN 0.125 MG TABLET PO SCH (14:21)
[2017-05-16] MEDS: METOPROLOL TARTRATE 25 MG TABLET PO SCH ×3 (14:21→22:04)
[2017-05-16] MEDS: FUROSEMIDE 40 MG TABLET PO SCH (14:22)
[2017-05-16] MEDS: THIAMINE 100MG TABLET PO SCH (14:27)
[2017-05-16] MEDS: TAMSULOSIN 0.4 MG CAP.ER.24H PO SCH (14:28)
[2017-05-16] MEDS: FAMOTIDINE 40 MG/5 ML ORAL SUSP PO SCH ×2 (14:31→21:06)
[2017-05-16] MEDS: MAGNESIUM CARBONATE 54 MG/5 ML ORAL SOL NG SCH ×2 (14:31→21:06)
[2017-05-16] MEDS: MULTIVIT.W/IRON, MINERALS ORAL SOL PO SCH (14:31)
[2017-05-16 19:10] VITALS: BP 95/53
[2017-05-16 22:03] VITALS: BP 109/71
[2017-05-16] MEDS ORDERED: LACTULOSE 20 GM/30 ML UDC ONE (23:54)
[2017-05-17] MEDS ORDERED: ZIPRASIDONE 20 MG INJ IM ONE
[2017-05-17] MEDS: LACTULOSE 20 GM/30 ML UDC PO SCH ×3 (00:18→20:25)
[2017-05-17 02:13] VITALS: BP 110/69
[2017-05-17 07:29] VITALS: BP 116/65
[2017-05-17] MEDS: MULTIVIT.W/IRON, MINERALS ORAL SOL PO SCH (08:57)
[2017-05-17] MEDS: MAGNESIUM CARBONATE 54 MG/5 ML ORAL SOL NG SCH ×2 (08:57→20:24)
[2017-05-17] MEDS: FAMOTIDINE 40 MG/5 ML ORAL SUSP PO SCH ×2 (08:58→20:25)
[2017-05-17] MEDS: TAMSULOSIN 0.4 MG CAP.ER.24H PO SCH (09:00)
[2017-05-17] MEDS: ZINC SULFATE 220 MG CAPSULE PO SCH ×3 (09:16→16:35)
[2017-05-17] MEDS: DIGOXIN 0.125 MG TABLET PO SCH (09:16)
[2017-05-17] MEDS: SPIRONOLACTONE 100 MG TABLET PO SCH (09:16)
[2017-05-17] MEDS: METOPROLOL TARTRATE 25 MG TABLET PO SCH ×2 (09:17→20:25)
[2017-05-17] MEDS: RIFAXIMIN 550 MG TABLET PO SCH ×2 (09:17→20:25)
[2017-05-17] MEDS: THIAMINE 100MG TABLET PO SCH (09:17)
[2017-05-17] MEDS: FOLIC ACID 1 MG TABLET PO SCH (09:17)
[2017-05-17] MEDS: FUROSEMIDE 40 MG TABLET PO SCH (09:17)
[2017-05-17] MEDS: SODIUM CHLORIDE FLUSH 10ML SYR IVF SCH ×2 (09:18→21:23)
[2017-05-17 12:01] VITALS: BP 109/64
[2017-05-17 14:02] VITALS: BP 111/75
[2017-05-17] MEDS: THIAMINE 100MG TABLET NG SCH ×2 (16:36→20:26)
[2017-05-17 18:26] VITALS: BP 103/65
[2017-05-18 00:59] VITALS: BP 113/60
[2017-05-18] MEDS ORDERED: ZIPRASIDONE 20 MG INJ IM ONE (01:00)
[2017-05-18 05:43] LABS: MEAN CORPUSCULAR HEMOGLOBIN 37.4 pg (27.5-34.5); MEAN CORPUSCULAR HGB CONC 33.3 g/dL (33.2-36.2); MEAN CORPUSCULAR VOLUME 112.3 fL (81-97); MEAN PLATELET VOLUME 9.8 fL (7.4-10.4); PLATELET COUNT 119 x10^3/uL (130-400); RED BLOOD COUNT 3.19 x10^6/uL (4.38-5.82); RED CELL DISTRIBUTION WIDTH 14.9 % (9.4-14.8)
[2017-05-18 05:51] LABS: CHLORIDE 111 mmol/L (98-107)
[2017-05-18 06:01] LABS: ALANINE AMINOTRANSFERASE 66 U/L (12-78); ALBUMIN 3.1 g/dL (3.4-5.0); ALKALINE PHOSPHATASE 170 U/L (45-117); ANION GAP 7 mmol/L (5-15); BILIRUBIN,TOTAL 3.7 mg/dL (0.2-1.0); CALCIUM 9.4 mg/dL (8.5-10.1); CREATININE 1.25 mg/dL (0.7-1.3); TOTAL PROTEIN 8.9 g/dL (6.4-8.2)
[2017-05-18 06:02] LABS: BASOPHILS # (AUTO) 0.13 x10^3/uL (0-0.1); BASOPHILS % (AUTO) 2 % (0-1); EOSINOPHILS # (AUTO) 0.27 x10^3/uL (0-0.4); EOSINOPHILS % (AUTO) 3 % (1-7); LYMPHOCYTES # (AUTO) 1.14 x10^3/uL (1-3.4); LYMPHOCYTES % (AUTO) 13 % (22-44); MD SCAN; MONOCYTES # (AUTO) 1.04 x10^3/uL (0.2-0.8); MONOCYTES % (AUTO) 12 % (2-9); NEUTROPHILS # (AUTO) 5.92 x10^3/uL (1.8-6.8); NEUTROPHILS % (AUTO) 70 % (42-75)
[2017-05-18 07:24] VITALS: BP 111/67
[2017-05-18] MEDS: LACTULOSE 20 GM/30 ML UDC PO SCH (08:49)
[2017-05-18] MEDS: THIAMINE 100MG TABLET NG SCH ×3 (08:50→21:27)
[2017-05-18] MEDS: ZINC SULFATE 220 MG CAPSULE PO SCH ×3 (08:50→21:26)
[2017-05-18] MEDS: FUROSEMIDE 40 MG TABLET PO SCH (08:50)
[2017-05-18] MEDS: FOLIC ACID 1 MG TABLET PO SCH (08:50)
[2017-05-18] MEDS: SPIRONOLACTONE 100 MG TABLET PO SCH (08:50)
[2017-05-18] MEDS: RIFAXIMIN 550 MG TABLET PO SCH ×2 (08:50→21:26)
[2017-05-18] MEDS: METOPROLOL TARTRATE 25 MG TABLET PO SCH ×2 (08:52→20:57)
[2017-05-18] MEDS: DIGOXIN 0.125 MG TABLET PO SCH (08:53)
[2017-05-18] MEDS: TAMSULOSIN 0.4 MG CAP.ER.24H PO SCH (08:53)
[2017-05-18] MEDS: SODIUM CHLORIDE FLUSH 10ML SYR IVF SCH ×2 (08:54→21:26)
[2017-05-18] MEDS: FAMOTIDINE 40 MG/5 ML ORAL SUSP PO SCH ×2 (09:31→21:53)
[2017-05-18] MEDS: MULTIVIT.W/IRON, MINERALS ORAL SOL PO SCH (09:31)
[2017-05-18] MEDS: MAGNESIUM CARBONATE 54 MG/5 ML ORAL SOL NG SCH ×2 (09:31→21:53)
[2017-05-18 12:37] VITALS: BP 104/72
[2017-05-18 14:00] VITALS: BP 110/72
[2017-05-18 17:18] VITALS: BP 100/61
[2017-05-18] MEDS: ZIPRASIDONE 20 MG INJ IM PRN (19:21)
[2017-05-18 19:23] VITALS: BP 99/60
[2017-05-19 02:07] VITALS: BP 103/65
[2017-05-19 06:57] VITALS: BP 107/65
[2017-05-19] MEDS: ZINC SULFATE 220 MG CAPSULE PO SCH ×3 (08:00→13:48)
[2017-05-19] MEDS: TAMSULOSIN 0.4 MG CAP.ER.24H PO SCH (09:00)
[2017-05-19] MEDS: THIAMINE 100MG TABLET NG SCH ×3 (09:00→22:30)
[2017-05-19] MEDS: METOPROLOL TARTRATE 25 MG TABLET PO SCH ×2 (09:00→22:31)
[2017-05-19] MEDS: SPIRONOLACTONE 100 MG TABLET PO SCH (09:00)
[2017-05-19] MEDS: RIFAXIMIN 550 MG TABLET PO SCH ×2 (09:00→22:30)
[2017-05-19] MEDS: FOLIC ACID 1 MG TABLET PO SCH (09:00)
[2017-05-19] MEDS: FAMOTIDINE 40 MG/5 ML ORAL SUSP PO SCH ×2 (10:45→22:30)
[2017-05-19] MEDS: DIGOXIN PED PO SCH (10:46)
[2017-05-19] MEDS: FUROSEMIDE 10 MG/ML ORAL SOL PO SCH (10:47)
[2017-05-19] MEDS: MAGNESIUM CARBONATE 54 MG/5 ML ORAL SOL NG SCH ×2 (10:48→22:30)
[2017-05-19] MEDS: MULTIVIT.W/IRON, MINERALS ORAL SOL PO SCH (10:49)
[2017-05-19] MEDS: LACTULOSE 20 GM/30 ML UDC PO SCH (10:49)
[2017-05-19] MEDS: SODIUM CHLORIDE FLUSH 10ML SYR IVF SCH ×2 (10:51→23:11)
[2017-05-19 12:00] VITALS: BP 109/68
[2017-05-19 18:31] VITALS: BP 100/65
[2017-05-20 01:03] VITALS: BP 94/60
[2017-05-20 06:30] VITALS: BP 112/71
[2017-05-20 06:40] VITALS: BP 95/57
[2017-05-20] MEDS: ZINC SULFATE 220 MG CAPSULE PO SCH ×3 (08:00→15:35)
[2017-05-20] MEDS: RIFAXIMIN 550 MG TABLET PO SCH ×2 (09:00→21:24)
[2017-05-20] MEDS: THIAMINE 100MG TABLET NG SCH ×3 (09:00→21:24)
[2017-05-20] MEDS: METOPROLOL TARTRATE 25 MG TABLET PO SCH ×2 (09:00→21:00)
[2017-05-20] MEDS: FOLIC ACID 1 MG TABLET PO SCH (09:00)
[2017-05-20] MEDS: LACTULOSE 20 GM/30 ML UDC PO SCH (09:00)
[2017-05-20] MEDS: TAMSULOSIN 0.4 MG CAP.ER.24H PO SCH (09:00)
[2017-05-20] MEDS: SPIRONOLACTONE 100 MG TABLET PO SCH (09:00)
[2017-05-20] MEDS: MULTIVIT.W/IRON, MINERALS ORAL SOL PO SCH (10:11)
[2017-05-20] MEDS: DIGOXIN PED PO SCH (10:12)
[2017-05-20] MEDS: FAMOTIDINE 40 MG/5 ML ORAL SUSP PO SCH ×2 (10:12→21:00)
[2017-05-20] MEDS: FUROSEMIDE 10 MG/ML ORAL SOL PO SCH (10:12)
[2017-05-20] MEDS: MAGNESIUM CARBONATE 54 MG/5 ML ORAL SOL NG SCH ×2 (10:13→21:22)
[2017-05-20] MEDS: SODIUM CHLORIDE FLUSH 10ML SYR IVF SCH ×2 (10:13→21:35)
[2017-05-20 16:01] VITALS: BP 91/52
[2017-05-20 19:21] VITALS: BP 91/58
[2017-05-21 00:18] VITALS: BP 109/70
[2017-05-21 06:25] VITALS: BP 101/62
[2017-05-21] MEDS: FOLIC ACID 1 MG TABLET PO SCH (07:37)
[2017-05-21] MEDS: ZINC SULFATE 220 MG CAPSULE PO SCH ×3 (07:39→16:55)
[2017-05-21] MEDS: RIFAXIMIN 550 MG TABLET PO SCH ×2 (07:39→20:46)
[2017-05-21] MEDS: TAMSULOSIN 0.4 MG CAP.ER.24H PO SCH (07:39)
[2017-05-21] MEDS: SPIRONOLACTONE 100 MG TABLET PO SCH (07:39)
[2017-05-21] MEDS: THIAMINE 100MG TABLET NG SCH ×3 (07:39→20:46)
[2017-05-21] MEDS: MAGNESIUM CARBONATE 54 MG/5 ML ORAL SOL NG SCH ×2 (07:41→20:46)
[2017-05-21] MEDS: LACTULOSE 20 GM/30 ML UDC PO SCH (07:41)
[2017-05-21] MEDS: FAMOTIDINE 40 MG/5 ML ORAL SUSP PO SCH ×2 (07:41→20:46)
[2017-05-21] MEDS: SODIUM CHLORIDE FLUSH 10ML SYR IVF SCH ×2 (07:42→20:46)
[2017-05-21] MEDS: METOPROLOL TARTRATE 25 MG TABLET PO SCH ×2 (07:42→20:46)
[2017-05-21] MEDS: MULTIVIT.W/IRON, MINERALS ORAL SOL PO SCH (07:42)
[2017-05-21] MEDS: DIGOXIN PED PO SCH (07:44)
[2017-05-21] MEDS ORDERED: FUROSEMIDE 80 MG TABLET ONE (07:48)
[2017-05-21] MEDS: FUROSEMIDE 10 MG/ML ORAL SOL PO SCH (07:50)
[2017-05-21 12:25] VITALS: BP 109/62
[2017-05-21 18:59] VITALS: BP 102/63
[2017-05-22 00:13] VITALS: BP 99/63
[2017-05-22 06:56] VITALS: BP 92/54
[2017-05-22] MEDS: METOPROLOL TARTRATE 25 MG TABLET PO SCH ×2 (09:00→19:29)
[2017-05-22] MEDS: FOLIC ACID 1 MG TABLET PO SCH (09:31)
[2017-05-22] MEDS: TAMSULOSIN 0.4 MG CAP.ER.24H PO SCH (09:31)
[2017-05-22] MEDS: RIFAXIMIN 550 MG TABLET PO SCH ×2 (09:31→20:41)
[2017-05-22] MEDS: THIAMINE 100MG TABLET NG SCH ×3 (09:31→20:41)
[2017-05-22] MEDS: SPIRONOLACTONE 100 MG TABLET PO SCH (09:32)
[2017-05-22] MEDS: ZINC SULFATE 220 MG CAPSULE PO SCH ×3 (09:32→17:00)
[2017-05-22] MEDS: FAMOTIDINE 40 MG/5 ML ORAL SUSP PO SCH ×2 (09:32→20:41)
[2017-05-22] MEDS: FUROSEMIDE 10 MG/ML ORAL SOL PO SCH (09:34)
[2017-05-22] MEDS: MAGNESIUM CARBONATE 54 MG/5 ML ORAL SOL NG SCH ×2 (09:34→20:41)
[2017-05-22] MEDS: DIGOXIN PED PO SCH (09:35)
[2017-05-22] MEDS: MULTIVIT.W/IRON, MINERALS ORAL SOL PO SCH (09:35)
[2017-05-22] MEDS: SODIUM CHLORIDE FLUSH 10ML SYR IVF SCH ×2 (11:04→20:42)
[2017-05-22 17:18] VITALS: BP 88/57
[2017-05-22 17:47] VITALS: BP 88/57
[2017-05-22 19:15] VITALS: BP 100/58
[2017-05-22] MEDS: ZIPRASIDONE 20 MG INJ IM PRN (23:39)
[2017-05-23 00:02] VITALS: BP 107/70
[2017-05-23 06:35] VITALS: BP 105/65
[2017-05-23] MEDS: ZINC SULFATE 220 MG CAPSULE PO SCH ×3 (08:00→17:00)
[2017-05-23] MEDS: RIFAXIMIN 550 MG TABLET PO SCH ×2 (09:00→21:00)
[2017-05-23] MEDS: FAMOTIDINE 40 MG/5 ML ORAL SUSP PO SCH ×2 (09:00→21:00)
[2017-05-23] MEDS: MULTIVIT.W/IRON, MINERALS ORAL SOL PO SCH (09:00)
[2017-05-23] MEDS: SPIRONOLACTONE 100 MG TABLET PO SCH (09:00)
[2017-05-23] MEDS: MAGNESIUM CARBONATE 54 MG/5 ML ORAL SOL NG SCH ×2 (09:00→21:00)
[2017-05-23] MEDS: TAMSULOSIN 0.4 MG CAP.ER.24H PO SCH (09:00)
[2017-05-23] MEDS: DIGOXIN PED PO SCH (09:00)
[2017-05-23] MEDS: FOLIC ACID 1 MG TABLET PO SCH (09:00)
[2017-05-23] MEDS: METOPROLOL TARTRATE 25 MG TABLET PO SCH ×2 (09:00→21:00)
[2017-05-23] MEDS: FUROSEMIDE 10 MG/ML ORAL SOL PO SCH (09:00)
[2017-05-23] MEDS: THIAMINE 100MG TABLET NG SCH ×3 (09:00→21:00)
[2017-05-23] MEDS: SODIUM CHLORIDE FLUSH 10ML SYR IVF SCH ×2 (16:37→20:12)
[2017-05-23] MEDS ORDERED: LACTATED RINGERS 1,000 ML IV SCH (17:00)
[2017-05-23] MEDS: ZIPRASIDONE 20 MG INJ IM PRN (17:37)
[2017-05-23 18:15] VITALS: BP 100/65
[2017-05-23] MEDS ORDERED: GADOBUTROL 7.5 MMOL/7.5 ML PFS ONE (18:27)
[2017-05-23 18:49] VITALS: BP 125/71
[2017-05-24 00:59] VITALS: BP 108/70
[2017-05-24] MEDS ORDERED: SODIUM CHLORIDE 0.9% 1,000 ML IV ONE (02:30)
[2017-05-24 05:01] LABS: MEAN CORPUSCULAR HEMOGLOBIN 38.3 pg (27.5-34.5); MEAN CORPUSCULAR HGB CONC 34.5 g/dL (33.2-36.2); PLATELET COUNT 100 x10^3/uL (130-400); RED BLOOD COUNT 3.05 x10^6/uL (4.38-5.82)
[2017-05-24 05:07] LABS: BASOPHILS % (AUTO) 1 % (0-1); EOSINOPHILS # (AUTO) 0.34 x10^3/uL (0-0.4); EOSINOPHILS % (AUTO) 3 % (1-7); LYMPHOCYTES # (AUTO) 1.21 x10^3/uL (1-3.4); LYMPHOCYTES % (AUTO) 12 % (22-44); MD NO; MONOCYTES # (AUTO) 1.17 x10^3/uL (0.2-0.8); MONOCYTES % (AUTO) 12 % (2-9); NEUTROPHILS # (AUTO) 7.05 x10^3/uL (1.8-6.8); NEUTROPHILS % (AUTO) 72 % (42-75)
[2017-05-24 05:12] LABS: CHLORIDE 109 mmol/L (98-107)
[2017-05-24 05:20] LABS: ALANINE AMINOTRANSFERASE 90 U/L (12-78); ALBUMIN 2.9 g/dL (3.4-5.0); ALKALINE PHOSPHATASE 115 U/L (45-117); ANION GAP 11 mmol/L (5-15); BILIRUBIN,TOTAL 6.2 mg/dL (0.2-1.0); CALCIUM 9.4 mg/dL (8.5-10.1); CREATININE 1.72 mg/dL (0.7-1.3); TOTAL PROTEIN 9.2 g/dL (6.4-8.2)
[2017-05-24 07:18] VITALS: BP 113/74
[2017-05-24] MEDS: ZINC SULFATE 220 MG CAPSULE PO SCH ×3 (08:00→17:09)
[2017-05-24] MEDS: THIAMINE 100MG TABLET NG SCH ×3 (09:00→20:02)
[2017-05-24] MEDS: RIFAXIMIN 550 MG TABLET PO SCH ×2 (09:00→20:22)
[2017-05-24] MEDS: DIGOXIN PED PO SCH (09:00)
[2017-05-24] MEDS: MAGNESIUM CARBONATE 54 MG/5 ML ORAL SOL NG SCH ×2 (09:00→20:02)
[2017-05-24] MEDS: FUROSEMIDE 10 MG/ML ORAL SOL PO SCH (09:00)
[2017-05-24] MEDS: FAMOTIDINE 40 MG/5 ML ORAL SUSP PO SCH ×2 (09:00→21:00)
[2017-05-24] MEDS: SPIRONOLACTONE 100 MG TABLET PO SCH (09:00)
[2017-05-24] MEDS: METOPROLOL TARTRATE 25 MG TABLET PO SCH ×2 (09:00→20:22)
[2017-05-24] MEDS: MULTIVIT.W/IRON, MINERALS ORAL SOL PO SCH (09:00)
[2017-05-24] MEDS: TAMSULOSIN 0.4 MG CAP.ER.24H PO SCH (09:00)
[2017-05-24] MEDS: FOLIC ACID 1 MG TABLET PO SCH (09:00)
[2017-05-24] MEDS: SODIUM CHLORIDE FLUSH 10ML SYR IVF SCH ×2 (10:06→21:25)
[2017-05-24] MEDS ORDERED: METOPROLOL 1 MG/ML, 5ML IVPush PRN (10:30)
[2017-05-24] MEDS: ALBUMIN HUMAN 25% 100 ML IV SCH (12:07)
[2017-05-24 12:31] VITALS: BP 116/71
[2017-05-24 13:00] VITALS: BP 109/60
[2017-05-24] MEDS ORDERED: LACTATED RINGERS 1,000 ML IV SCH (17:00)
[2017-05-24 20:39] VITALS: BP 130/57
[2017-05-25 00:52] VITALS: BP 106/66
[2017-05-25 05:52] LABS: CHLORIDE 116 mmol/L (98-107)
[2017-05-25 06:00] LABS: ALANINE AMINOTRANSFERASE 78 U/L (12-78); ALBUMIN 2.8 g/dL (3.4-5.0); ALKALINE PHOSPHATASE 91 U/L (45-117); ANION GAP 6 mmol/L (5-15); CALCIUM 9.2 mg/dL (8.5-10.1); CREATININE 1.11 mg/dL (0.7-1.3); TOTAL PROTEIN 8.2 g/dL (6.4-8.2)
[2017-05-25 06:22] LABS: BASOPHILS # (AUTO) 0.13 x10^3/uL (0-0.1); BASOPHILS % (AUTO) 2 % (0-1); EOSINOPHILS # (AUTO) 0.52 x10^3/uL (0-0.4); EOSINOPHILS % (AUTO) 8 % (1-7); LYMPHOCYTES # (AUTO) 1.16 x10^3/uL (1-3.4); LYMPHOCYTES % (AUTO) 17 % (22-44); MD SCAN; MEAN CORPUSCULAR HEMOGLOBIN 37.5 pg (27.5-34.5); MEAN CORPUSCULAR HGB CONC 33.7 g/dL (33.2-36.2); MEAN CORPUSCULAR VOLUME 111.3 fL (81-97); MEAN PLATELET VOLUME 10.1 fL (7.4-10.4); MONOCYTES # (AUTO) 0.88 x10^3/uL (0.2-0.8); MONOCYTES % (AUTO) 13 % (2-9); NEUTROPHILS # (AUTO) 4.03 x10^3/uL (1.8-6.8); NEUTROPHILS % (AUTO) 60 % (42-75); PLATELET COUNT 82 x10^3/uL (130-400); RED BLOOD COUNT 2.86 x10^6/uL (4.38-5.82); RED CELL DISTRIBUTION WIDTH 15.4 % (9.4-14.8)
[2017-05-25] MEDS: ZINC SULFATE 220 MG CAPSULE PO SCH ×3 (07:38→16:04)
[2017-05-25] MEDS: FOLIC ACID 1 MG TABLET PO SCH (07:39)
[2017-05-25] MEDS: TAMSULOSIN 0.4 MG CAP.ER.24H PO SCH (07:39)
[2017-05-25] MEDS: SPIRONOLACTONE 100 MG TABLET PO SCH (07:39)
[2017-05-25] MEDS: MULTIVIT.W/IRON, MINERALS ORAL SOL PO SCH (07:39)
[2017-05-25] MEDS: MAGNESIUM CARBONATE 54 MG/5 ML ORAL SOL NG SCH ×2 (07:39→21:00)
[2017-05-25] MEDS: THIAMINE 100MG TABLET NG SCH ×3 (07:39→21:00)
[2017-05-25] MEDS: DIGOXIN PED PO SCH (07:46)
[2017-05-25] MEDS: FUROSEMIDE 10 MG/ML ORAL SOL PO SCH (07:46)
[2017-05-25] MEDS: METOPROLOL TARTRATE 25 MG TABLET PO SCH ×2 (07:46→21:00)
[2017-05-25] MEDS: RIFAXIMIN 550 MG TABLET PO SCH ×2 (07:47→21:00)
[2017-05-25] MEDS: FAMOTIDINE 40 MG/5 ML ORAL SUSP PO SCH ×2 (07:47→21:00)
[2017-05-25 08:05] VITALS: BP 114/72
[2017-05-25] MEDS ORDERED: DEXTROSE 5% 1,000 ML IV SCH (09:00)
[2017-05-25] MEDS: ALBUMIN HUMAN 25% 100 ML IV SCH (09:40)
[2017-05-25] MEDS: SODIUM CHLORIDE FLUSH 10ML SYR IVF SCH ×2 (09:41→21:00)
[2017-05-25 13:13] VITALS: BP 108/88
[2017-05-25] MEDS: POTASSIUM CHLORIDE 20 MEQ, MAGNESIUM SULFATE 1 GM, FOLIC ACID 1 MG, THIAMINE 100 MG, MV... IV SCH (18:26)
[2017-05-25 18:58] VITALS: BP 101/70
[2017-05-26 00:49] VITALS: BP 106/66
[2017-05-26 05:43] LABS: INTERNATIONAL NORMALIZED RATIO 1.89 (0.93-1.1); MEAN CORPUSCULAR HEMOGLOBIN 38.3 pg (27.5-34.5); MEAN CORPUSCULAR HGB CONC 34.1 g/dL (33.2-36.2); MEAN CORPUSCULAR VOLUME 112.3 fL (81-97); PLATELET COUNT 78 x10^3/uL (130-400); PROTHROMBIN TIME 19.2 Seconds (9.6-11.5); RED BLOOD COUNT 2.91 x10^6/uL (4.38-5.82)
[2017-05-26 05:50] LABS: ALBUMIN 2.9 g/dL (3.4-5.0); ANION GAP 8 mmol/L (5-15); BILIRUBIN, DIRECT 2.3 mg/dL (0.1-0.2); CALCIUM 9.1 mg/dL (8.5-10.1); CHLORIDE 114 mmol/L (98-107)
[2017-05-26 05:57] LABS: ALANINE AMINOTRANSFERASE 77 U/L (12-78); ALKALINE PHOSPHATASE 83 U/L (45-117); BILIRUBIN,TOTAL 5.3 mg/dL (0.2-1.0); TOTAL PROTEIN 8.2 g/dL (6.4-8.2)
[2017-05-26 06:12] LABS: BASOPHILS # (AUTO) 0.02 x10^3/uL (0-0.1); BASOPHILS % (AUTO) 0 % (0-1); EOSINOPHILS # (AUTO) 0.55 x10^3/uL (0-0.4); EOSINOPHILS % (AUTO) 9 % (1-7); LYMPHOCYTES # (AUTO) 0.99 x10^3/uL (1-3.4); LYMPHOCYTES % (AUTO) 16 % (22-44); MD SCAN; MONOCYTES # (AUTO) 0.76 x10^3/uL (0.2-0.8); MONOCYTES % (AUTO) 13 % (2-9); NEUTROPHILS # (AUTO) 3.76 x10^3/uL (1.8-6.8); NEUTROPHILS % (AUTO) 62 % (42-75)
[2017-05-26] MEDS: ZINC SULFATE 220 MG CAPSULE PO SCH ×3 (08:00→17:00)
[2017-05-26] MEDS: FOLIC ACID 1 MG TABLET PO SCH (09:00)
[2017-05-26] MEDS: FUROSEMIDE 10 MG/ML ORAL SOL PO SCH (09:00)
[2017-05-26] MEDS: MULTIVIT.W/IRON, MINERALS ORAL SOL PO SCH (09:00)
[2017-05-26] MEDS: FAMOTIDINE 40 MG/5 ML ORAL SUSP PO SCH ×2 (09:00→21:56)
[2017-05-26] MEDS: MAGNESIUM CARBONATE 54 MG/5 ML ORAL SOL NG SCH ×2 (09:00→21:55)
[2017-05-26] MEDS: THIAMINE 100MG TABLET NG SCH ×3 (09:00→21:55)
[2017-05-26] MEDS: DIGOXIN PED PO SCH (09:00)
[2017-05-26] MEDS: RIFAXIMIN 550 MG TABLET PO SCH ×2 (09:00→21:56)
[2017-05-26] MEDS: METOPROLOL TARTRATE 25 MG TABLET PO SCH ×2 (09:00→21:55)
[2017-05-26] MEDS: TAMSULOSIN 0.4 MG CAP.ER.24H PO SCH (09:00)
[2017-05-26] MEDS: SPIRONOLACTONE 100 MG TABLET PO SCH (09:00)
[2017-05-26] MEDS: SODIUM CHLORIDE FLUSH 10ML SYR IVF SCH ×2 (09:00→21:47)
[2017-05-26] MEDS: ALBUMIN HUMAN 25% 100 ML IV SCH (09:50)
[2017-05-26 10:36] VITALS: BP 96/67
[2017-05-26 12:49] VITALS: BP 115/75
[2017-05-26 19:24] VITALS: BP 98/65
[2017-05-26] MEDS: POTASSIUM CHLORIDE 20 MEQ, MAGNESIUM SULFATE 1 GM, FOLIC ACID 1 MG, THIAMINE 100 MG, MV... IV SCH (21:48)
[2017-05-27 01:29] VITALS: BP 88/56
[2017-05-27 01:34] VITALS: BP 100/63
[2017-05-27 08:00] VITALS: BP 98/66
[2017-05-27] MEDS: ZINC SULFATE 220 MG CAPSULE PO SCH ×3 (08:00→17:29)
[2017-05-27] MEDS: MAGNESIUM CARBONATE 54 MG/5 ML ORAL SOL NG SCH ×2 (08:22→21:00)
[2017-05-27] MEDS: THIAMINE 100MG TABLET NG SCH ×3 (08:23→21:35)
[2017-05-27] MEDS: SPIRONOLACTONE 100 MG TABLET PO SCH (08:23)
[2017-05-27] MEDS: MULTIVIT.W/IRON, MINERALS ORAL SOL PO SCH (08:23)
[2017-05-27] MEDS: TAMSULOSIN 0.4 MG CAP.ER.24H PO SCH (08:24)
[2017-05-27] MEDS: METOPROLOL TARTRATE 25 MG TABLET PO SCH ×2 (08:24→21:48)
[2017-05-27] MEDS: FOLIC ACID 1 MG TABLET PO SCH (08:24)
[2017-05-27] MEDS: DIGOXIN PED PO SCH (08:24)
[2017-05-27] MEDS: FUROSEMIDE 10 MG/ML ORAL SOL PO SCH (08:24)
[2017-05-27] MEDS: FAMOTIDINE 40 MG/5 ML ORAL SUSP PO SCH ×2 (08:25→21:36)
[2017-05-27] MEDS: RIFAXIMIN 550 MG TABLET PO SCH ×2 (08:25→21:36)
[2017-05-27] MEDS: ALBUMIN HUMAN 25% 100 ML IV SCH (09:23)
[2017-05-27] MEDS: SODIUM CHLORIDE FLUSH 10ML SYR IVF SCH ×2 (09:24→21:19)
[2017-05-27 14:00] VITALS: BP 96/61
[2017-05-27] MEDS: POTASSIUM CHLORIDE 20 MEQ, MAGNESIUM SULFATE 1 GM, FOLIC ACID 1 MG, THIAMINE 100 MG, MV... IV SCH (19:05)
[2017-05-27 20:16] VITALS: BP 93/61
[2017-05-28 01:44] VITALS: BP 98/66
[2017-05-28 08:00] VITALS: BP 89/49
[2017-05-28] MEDS: TAMSULOSIN 0.4 MG CAP.ER.24H PO SCH (08:18)
[2017-05-28] MEDS: FOLIC ACID 1 MG TABLET PO SCH (08:22)
[2017-05-28] MEDS: SPIRONOLACTONE 100 MG TABLET PO SCH (08:22)
[2017-05-28] MEDS: ZINC SULFATE 220 MG CAPSULE PO SCH ×2 (08:23→13:10)
[2017-05-28] MEDS: RIFAXIMIN 550 MG TABLET PO SCH (08:23)
[2017-05-28] MEDS: METOPROLOL TARTRATE 25 MG TABLET PO SCH (08:24)
[2017-05-28] MEDS ORDERED: FUROSEMIDE 80 MG TABLET PO SCH (09:00)
[2017-05-28] MEDS ORDERED: FAMOTIDINE 20 MG TABLET PO SCH (09:00)
[2017-05-28] MEDS: MULTIVIT.W/IRON, MINERALS ORAL SOL PO SCH (09:00)
[2017-05-28] MEDS: SODIUM CHLORIDE FLUSH 10ML SYR IVF SCH (09:00)
[2017-05-28] MEDS: THIAMINE 100MG TABLET NG SCH (09:00)
[2017-05-28] MEDS ORDERED: DIGOXIN 0.125 MG TABLET PO SCH (09:00)
[2017-05-28] MEDS: MAGNESIUM CARBONATE 54 MG/5 ML ORAL SOL NG SCH (09:00)
[2017-05-28] MEDS ORDERED: SPIR100T PO (09:29)
[2017-05-28] MEDS ORDERED: ZINC220C5 PO (09:29)
[2017-05-28] MEDS ORDERED: THIA100T6 NG (09:29)
[2017-05-28] MEDS ORDERED: FOLI-17 PO (09:29)
[2017-05-28] MEDS ORDERED: METO-93 PO (09:29)
[2017-05-28] MEDS ORDERED: RIFA550T4 PO (09:29)
[2017-05-28] MEDS ORDERED: FAMO20TA7 PO (09:29)
[2017-05-28] MEDS ORDERED: TAMS-11 PO (09:29)
[2017-05-28] MEDS ORDERED: DIGO125T PO (09:29)
[2017-05-28] MEDS ORDERED: FURO-92 PO (09:29)
[2017-05-28] MEDS ORDERED: MAGN400T26 PO (09:29)
[2017-05-28] MEDS ORDERED: Multivit.w/Iron, Minerals PO (09:29)
[2017-05-28] MEDS ORDERED: LACT20SO13 PO (09:45)
[2017-05-28] MEDS ORDERED: SODIUM CHLORIDE 0.9% 1,000 ML IV SCH (10:00)
[2017-05-28] MEDS: ALBUMIN HUMAN 25% 100 ML IV SCH (10:34)
[2017-05-28 13:20] VITALS: BP 96/56
== END 2017-05-28 16:12 | DRG 177 ==
LOC: ED 14:17 → SUATTDRO 15:57 → EDIP 16:08 → 5SO 17:45 → 3NE 04-23 16:17 → 5SO 05-01 18:14 → 3NE 05-18 16:29 → 4EST 05-24 09:29
PROVIDERS: ADMIT Family Medicine; ATTEND Family Medicine
PROC: 0W9G3ZZ Drainage of Peritoneal Cavity, Percutaneous Approach (ICD-10-PCS; 2017-04-16)
PROC: 0W9G3ZZ Drainage of Peritoneal Cavity, Percutaneous Approach (ICD-10-PCS; principal; 2017-05-06)
PROC: 0W9G3ZZ Drainage of Peritoneal Cavity, Percutaneous Approach (ICD-10-PCS; 2017-05-12)
DX: J69.0 Pneumonitis due to inhalation of food and vomit (principal); K85.20 Alcohol induced acute pancreatitis without necrosis or infection; E43 Unspecified severe protein-calorie malnutrition; I50.31 Acute diastolic (congestive) heart failure; F10.231 Alcohol dependence with withdrawal delirium; L89.152 Pressure ulcer of sacral region, stage 2; D68.4 Acquired coagulation factor deficiency; D68.69 Other thrombophilia; E87.2 Acidosis; E87.0 Hyperosmolality and hypernatremia; K76.6 Portal hypertension; E51.2 Wernicke's encephalopathy; K92.1 Melena; B19.20 Unspecified viral hepatitis C without hepatic coma; D69.6 Thrombocytopenia, unspecified; F10.229 Alcohol dependence with intoxication, unspecified; I48.91 Unspecified atrial fibrillation; K59.00 Constipation, unspecified; K70.11 Alcoholic hepatitis with ascites; K70.31 Alcoholic cirrhosis of liver with ascites; K70.40 Alcoholic hepatic failure without coma; D69.59 Other secondary thrombocytopenia; F17.200 Nicotine dependence, unspecified, uncomplicated; I34.0 Nonrheumatic mitral (valve) insufficiency; I70.0 Atherosclerosis of aorta; R13.10 Dysphagia, unspecified; Z66 Do not resuscitate; Z78.1 Physical restraint status; Z88.6 Allergy status to analgesic agent; Z87.01 Personal history of pneumonia (recurrent)
CPT/HCPCS: 36415; 36600; 49083; 70450; 70553; 71045; 71250; 74018; 74230; 76700; 76705; 80048; 80053; 80061; 80074; 80162; 80202; 80307; 81001; 82010; 82040; 82042; 82140; 82150; 82248; 82803; 83605; 83615; 83690; 83735; 83880; 83986; 84100; 84157; 84311; 84443; 84484; 85025; 85610; 85730; 87015; 87040; 87070; 87075; 87086; 87102; 87116; 87205; 87206; 87324; 87521; 88112; 88305; 89051; 93005; 93306; 99285; A9585; J1940; J2543; J3370; J3411; J3430; J3475; J3480; J3486; J3490; J7070; J7620; P9047; J1160; J1630; J2060; J7030; J7040; J7050; J7120; J7121; S0028

== ENCOUNTER 2019-12-20 15:51 | Inpatient (IN) | payer MEDICAID ==
[~2019-12-20] VITALS: Ht 182.9 cm; Wt 92.4 kg
[~2019-12-20 15:51] MED LIST: DIGO125T85 PO; ERGO500017 PO; FAMO20TA7 PO; FOLI-17 PO; FURO-92 PO; LACT20SO13 PO; MAGN400T26 PO; METO-93 PO; Multivit.w/Iron, Minerals PO; PANT40TA3 PO; RIFA550T4 PO; SPIR100T PO; TAMS-11 PO; THIA100T67 NG; ZINC220C7 PO
[2019-12-20] MEDS ORDERED: NEOSPORIN OINT. PKT 1 PACKET ONE (16:20)
--- NOTE | 2019-12-20 16:24 | NUR ---
PT RESTING IN [facility], NO NEEDS AT THIS TIME.
--- NOTE | 2019-12-20 16:26 | NUR ---
PT BIB [employer], [place], VIA POV. PT REPORTS HE HAS A CYST ON HIS BUTTOCKS ALONG WITH LOWER BACK PAIN AND FOOT PAIN. PT DENIES ANY TRAUMA TO THE AREA OR ANY FALLS.
[2019-12-20 16:38] LABS: BASOPHILS % (AUTO) 0 % (0-1); EOSINOPHILS % (AUTO) 1 % (1-7); LYMPHOCYTES % (AUTO) 5 % (22-44); MEAN CORPUSCULAR HEMOGLOBIN 36.6 pg (27.5-34.5); MEAN CORPUSCULAR HGB CONC 33.1 g/dL (33.2-36.2); MONOCYTES % (AUTO) 10 % (2-9); NEUTROPHILS % (AUTO) 83 % (42-75); PLATELET COUNT 167 x10^3/uL (130-400); RED BLOOD COUNT 4.15 x10^6/uL (4.38-5.82); RED CELL DISTRIBUTION WIDTH 14.7 % (9.4-14.8)
[2019-12-20 16:46] LABS: ALBUMIN 2.7 g/dL (3.4-5.0); ANION GAP 8 mmol/L (5-15); CALCIUM 9.2 mg/dL (8.5-10.1); CHLORIDE 97 mmol/L (98-107); CREATININE 2.09 mg/dL (0.7-1.3)
[2019-12-20 16:49] LABS: ALANINE AMINOTRANSFERASE 25 U/L (12-78); ALKALINE PHOSPHATASE 236 U/L (45-117); TOTAL PROTEIN 8.2 g/dL (6.4-8.2)
[2019-12-20] MEDS ORDERED: VANCOMYCIN PER PHARMACY MC PRN ×2 (17:00→20:30)
[2019-12-20] MEDS ORDERED: INSULIN SINGLE DOSE, ER ONE ×2 (17:32→17:33)
--- NOTE | 2019-12-20 17:40 | NUR ---
PRECEPTOR RN: BLOOD CULTURES X2 DRAWN PRIOR TO ABX ADMIN. PATIENT MEDICATED PER EMAR. TOLERATED WELL
[2019-12-20 17:45] LABS: MD MORPH REVIEW ONLY
[2019-12-20 17:46] LABS: <PLATELET ESTIMATE> ADEQUATE; <PLT MORPHOLOGY> NORMAL PLT MORPH; OVALOCYTES 1+
--- NOTE | 2019-12-20 17:55 | NUR ---
RUKHSANA ([employer]): [phone] MELI (BROTHER): [phone] PATIENT STATES OKAY TO GIVE MEDICAL INFOMATION OVER PHONE REGARDING PATIENT CARE
[2019-12-20] MEDS ORDERED: AMPICILLIN/SULBACTAM 3 GM in SODIUM CHLORIDE 0.9% 100 ML IV ONE (18:00)
[2019-12-20] MEDS ORDERED: SODIUM CHLORIDE 0.9% 1,000ML IVBOLUS ONE (18:00)
[2019-12-20] MEDS ORDERED: INSULIN REGULAR 100 UNITS/ML, 3ML VIAL IVPush ONE (18:00)
--- NOTE | 2019-12-20 18:44 | NUR ---
PT RESTING IN [facility], NO NEEDS AT THIS TIME. PT'S BS [phone].
[2019-12-20] MEDS ORDERED: VANCOMYCIN 2,500 MG in SODIUM CHLORIDE 0.9% 500 ML IV ONE (19:00)
[2019-12-20 19:29] LABS: ANION GAP 6 mmol/L (5-15); CALCIUM 8.5 mg/dL (8.5-10.1); CHLORIDE 107 mmol/L (98-107)
[2019-12-20] MEDS ORDERED: MORPHINE SULFATE 4 MG/ML, 1ML ONE (19:29)
[2019-12-20 19:30] LABS: CREATININE 1.64 mg/dL (0.7-1.3)
[2019-12-20] MEDS ORDERED: MORPHINE SULFATE 4 MG/ML, 1ML IVPush ONE (19:30)
--- NOTE | 2019-12-20 19:37 | NUR ---
PT RESTING ON GURNEY, PT MEDICATED PER EMAR. PT REPORTS NO OTHER COMPLAINTS AT THIS TIME.
[2019-12-20] MEDS ORDERED: LIDOCAINE 1%-EPI 1:100K, 20ML ONE (19:51)
[2019-12-20] MEDS ORDERED: LIDOCAINE 1%-EPI 1:100K, 50ML INFIL ONE (20:00)
[2019-12-20] MEDS ORDERED: CALCIUM GLUCONATE 0.46MEQ/1ML IVPush ONE (20:30)
[2019-12-20] MEDS ORDERED: DOCUSATE 100 MG CAPSULE PO PRN (20:30)
[2019-12-20] MEDS ORDERED: INSULIN REGULAR 100 UNITS/ML, 3ML VIAL SQ-INSULIN SCH (20:30)
--- NOTE | 2019-12-20 21:51 | NUR ---
PT RESTING IN [facility], NO NEEDS AT THIS TIME.
[2019-12-20 22:29] VITALS: BP 135/69
[2019-12-20] MEDS ORDERED: CALCIUM GLUCONATE 4.6 MEQ in SODIUM CHLORIDE 0.9% 100 ML IV ONE (22:30)
[2019-12-20] MEDS ORDERED: PHARMACOKINETIC MONITORING MC PRN (22:30)
[2019-12-20] MEDS: PANTOPRAZOLE 40MG TABLET PO SCH (23:09)
[2019-12-20] MEDS: RIFAXIMIN 550 MG TABLET PO SCH (23:09)
[2019-12-20] MEDS: MORPHINE SULFATE 4 MG/ML, 1ML IVPush PRN (23:09)
[2019-12-20] MEDS: SODIUM CHLORIDE 0.9% 1,000 ML IV SCH (23:10)
[2019-12-20] MEDS: INSULIN LISPRO 100 UNITS/ML, PEN SQ-INSULIN SCH (23:38)
[2019-12-21 00:38] LABS: CHLORIDE,URINE RANDOM 49 mmol/L; POTASSIUM,URINE RANDOM 60 mmol/L; SODIUM,URINE RANDOM 36 mmol/L
[2019-12-21 00:44] VITALS: BP 127/62
[2019-12-21] MEDS: AMPICILLIN/SULBACTAM 3 GM in SODIUM CHLORIDE 0.9% 100 ML IV SCH ×3 (01:18→16:34)
[2019-12-21 04:53] LABS: BASOPHILS % (AUTO) 1 % (0-1); EOSINOPHILS % (AUTO) 2 % (1-7); LYMPHOCYTES % (AUTO) 4 % (22-44); MEAN CORPUSCULAR HEMOGLOBIN 36.5 pg (27.5-34.5); MEAN CORPUSCULAR HGB CONC 33.5 g/dL (33.2-36.2); MEAN PLATELET VOLUME 8.6 fL (7.4-10.4); MONOCYTES % (AUTO) 6 % (2-9); NEUTROPHILS % (AUTO) 88 % (42-75); PLATELET COUNT 104 x10^3/uL (130-400); RED BLOOD COUNT 3.58 x10^6/uL (4.38-5.82); RED CELL DISTRIBUTION WIDTH 14.6 % (9.4-14.8)
[2019-12-21 05:01] LABS: MD NO
[2019-12-21 05:06] LABS: ANION GAP 6 mmol/L (5-15); CALCIUM 8.7 mg/dL (8.5-10.1); CHLORIDE 110 mmol/L (98-107)
[2019-12-21 05:08] LABS: CREATININE 1.46 mg/dL (0.7-1.3)
[2019-12-21] MEDS: SODIUM CHLORIDE 0.9% 1,000 ML IV SCH (06:30)
[2019-12-21 08:18] VITALS: BP 103/46
[2019-12-21] MEDS: RIFAXIMIN 550 MG TABLET PO SCH ×2 (08:22→20:50)
[2019-12-21] MEDS: SPIRONOLACTONE 100 MG TABLET PO SCH ×2 (08:23→08:38)
[2019-12-21] MEDS: TAMSULOSIN 0.4 MG CAP.ER.24H PO SCH (08:23)
[2019-12-21] MEDS: PANTOPRAZOLE 40MG TABLET PO SCH ×2 (08:23→20:50)
[2019-12-21] MEDS: DIGOXIN 0.125 MG TABLET PO SCH (08:23)
[2019-12-21] MEDS: LACTULOSE 20 GM/30 ML UDC PO SCH (08:25)
[2019-12-21] MEDS: INSULIN LISPRO 100 UNITS/ML, PEN SQ-INSULIN SCH ×4 (08:25→21:11)
[2019-12-21] MEDS: METOPROLOL SUCCINATE 50 MG TAB.ER.24H PO SCH (08:26)
[2019-12-21] MEDS ORDERED: FUROSEMIDE 40 MG TABLET PO SCH (09:00)
[2019-12-21] MEDS: OXYcodone IR 5MG TABLET PO PRN ×2 (10:59→20:50)
[2019-12-21 13:21] VITALS: BP 107/69
[2019-12-21] MEDS: VANCOMYCIN 1,900 MG in SODIUM CHLORIDE 0.9% 250 ML IV SCH (14:31)
[2019-12-21 19:48] VITALS: BP 110/67
[2019-12-21] MEDS: MORPHINE SULFATE 4 MG/ML, 1ML IVPush PRN (21:26)
[2019-12-22 00:58] VITALS: BP 95/57
[2019-12-22] MEDS: AMPICILLIN/SULBACTAM 3 GM in SODIUM CHLORIDE 0.9% 100 ML IV SCH ×3 (01:25→17:47)
[2019-12-22 06:56] VITALS: BP 119/64
[2019-12-22] MEDS: INSULIN LISPRO 100 UNITS/ML, PEN SQ-INSULIN SCH ×4 (08:09→21:56)
[2019-12-22] MEDS: TAMSULOSIN 0.4 MG CAP.ER.24H PO SCH (08:11)
[2019-12-22] MEDS: RIFAXIMIN 550 MG TABLET PO SCH ×2 (08:11→21:57)
[2019-12-22] MEDS: PANTOPRAZOLE 40MG TABLET PO SCH ×2 (08:11→21:57)
[2019-12-22] MEDS: METOPROLOL SUCCINATE 50 MG TAB.ER.24H PO SCH (08:11)
[2019-12-22] MEDS: FUROSEMIDE 40 MG TABLET PO SCH (08:11)
[2019-12-22] MEDS: LACTULOSE 20 GM/30 ML UDC PO SCH (08:12)
[2019-12-22] MEDS: DIGOXIN 0.125 MG TABLET PO SCH (08:12)
[2019-12-22] MEDS: VANCOMYCIN 1,900 MG in SODIUM CHLORIDE 0.9% 250 ML IV SCH (08:17)
[2019-12-22 09:04] LABS: BASOPHILS % (AUTO) 1 % (0-1); EOSINOPHILS % (AUTO) 3 % (1-7); LYMPHOCYTES % (AUTO) 15 % (22-44); MEAN CORPUSCULAR HEMOGLOBIN 36.5 pg (27.5-34.5); MEAN CORPUSCULAR HGB CONC 33.5 g/dL (33.2-36.2); MEAN PLATELET VOLUME 8.4 fL (7.4-10.4); MONOCYTES % (AUTO) 13 % (2-9); NEUTROPHILS % (AUTO) 68 % (42-75); PLATELET COUNT 82 x10^3/uL (130-400); RED CELL DISTRIBUTION WIDTH 14.5 % (9.4-14.8)
[2019-12-22 09:14] LABS: ANION GAP 7 mmol/L (5-15); CALCIUM 8.4 mg/dL (8.5-10.1); CHLORIDE 108 mmol/L (98-107); CREATININE 1.17 mg/dL (0.7-1.3)
[2019-12-22 09:32] LABS: MD SCAN
[2019-12-22] MEDS ORDERED: MAGNESIUM SULFATE 4 GM in SODIUM CHLORIDE 0.9% 100 ML IV ONE (12:00)
[2019-12-22] MEDS: MORPHINE SULFATE 4 MG/ML, 1ML IVPush PRN ×3 (12:22→22:25)
[2019-12-22 12:42] VITALS: BP 101/63
[2019-12-22] MEDS: OXYcodone IR 5MG TABLET PO PRN ×2 (18:02→21:58)
[2019-12-22 19:47] VITALS: BP 105/63
[2019-12-22] MEDS: INSULIN GLARGINE 100 UNITS/ML, PEN SQ-INSULIN SCH (22:59)
[2019-12-23 00:48] VITALS: BP 93/57
[2019-12-23] MEDS: AMPICILLIN/SULBACTAM 3 GM in SODIUM CHLORIDE 0.9% 100 ML IV SCH ×3 (00:51→17:30)
[2019-12-23] MEDS: VANCOMYCIN 1,900 MG in SODIUM CHLORIDE 0.9% 250 ML IV SCH (01:52)
[2019-12-23 05:02] LABS: BASOPHILS % (AUTO) 1 % (0-1); EOSINOPHILS % (AUTO) 3 % (1-7); LYMPHOCYTES % (AUTO) 13 % (22-44); MEAN CORPUSCULAR HGB CONC 33.4 g/dL (33.2-36.2); MEAN PLATELET VOLUME 8.6 fL (7.4-10.4); MONOCYTES % (AUTO) 12 % (2-9); NEUTROPHILS % (AUTO) 71 % (42-75); PLATELET COUNT 77 x10^3/uL (130-400); RED BLOOD COUNT 3.65 x10^6/uL (4.38-5.82); RED CELL DISTRIBUTION WIDTH 14.8 % (9.4-14.8)
[2019-12-23 05:04] LABS: MD NO
[2019-12-23 05:12] LABS: ANION GAP 6 mmol/L (5-15); CALCIUM 8.4 mg/dL (8.5-10.1); CHLORIDE 107 mmol/L (98-107); CREATININE 1.06 mg/dL (0.7-1.3)
[2019-12-23] MEDS ORDERED: MAGNESIUM SULFATE PMX 2GM/50ML 50 ML IV ONE (07:00)
[2019-12-23 07:22] VITALS: BP 115/83
[2019-12-23] MEDS: LACTULOSE 20 GM/30 ML UDC PO SCH (09:00)
[2019-12-23] MEDS: INSULIN LISPRO 100 UNITS/ML, PEN SQ-INSULIN SCH ×4 (09:22→21:37)
[2019-12-23] MEDS: PANTOPRAZOLE 40MG TABLET PO SCH ×2 (09:24→21:36)
[2019-12-23] MEDS: DIGOXIN 0.125 MG TABLET PO SCH (09:24)
[2019-12-23] MEDS: METOPROLOL SUCCINATE 50 MG TAB.ER.24H PO SCH (09:24)
[2019-12-23] MEDS: RIFAXIMIN 550 MG TABLET PO SCH ×2 (09:24→21:36)
[2019-12-23] MEDS: TAMSULOSIN 0.4 MG CAP.ER.24H PO SCH (09:24)
[2019-12-23] MEDS: FUROSEMIDE 40 MG TABLET PO SCH (09:24)
[2019-12-23] MEDS: OXYcodone IR 5MG TABLET PO PRN ×2 (12:05→22:05)
[2019-12-23] MEDS: MORPHINE SULFATE 4 MG/ML, 1ML IVPush PRN ×2 (12:05→21:35)
[2019-12-23 12:49] VITALS: BP 115/68
[2019-12-23] MEDS ORDERED: GADOTERATE 10 MMOL/20 ML SYR ONE (14:04)
[2019-12-23] MEDS ORDERED: INSULIN REGULAR 100 UNITS/ML, 3ML VIAL SQ-INSULIN SCH (19:08)
[2019-12-23 19:23] VITALS: BP 108/63
[2019-12-23 21:31] VITALS: BP 106/66
[2019-12-23] MEDS: INSULIN GLARGINE 100 UNITS/ML, PEN SQ-INSULIN SCH (21:37)
[2019-12-23 22:04] VITALS: BP 110/55
[2019-12-24] MEDS: AMPICILLIN/SULBACTAM 3 GM in SODIUM CHLORIDE 0.9% 100 ML IV SCH ×3 (01:15→17:14)
[2019-12-24 01:52] VITALS: BP 98/61
[2019-12-24 07:30] VITALS: BP 109/67
[2019-12-24] MEDS: INSULIN LISPRO 100 UNITS/ML, PEN SQ-INSULIN SCH ×4 (08:33→21:21)
[2019-12-24] MEDS: DIGOXIN 0.125 MG TABLET PO SCH (08:34)
[2019-12-24] MEDS: TAMSULOSIN 0.4 MG CAP.ER.24H PO SCH (08:34)
[2019-12-24] MEDS: PANTOPRAZOLE 40MG TABLET PO SCH ×2 (08:34→20:40)
[2019-12-24] MEDS: FUROSEMIDE 40 MG TABLET PO SCH (08:34)
[2019-12-24] MEDS: METOPROLOL SUCCINATE 50 MG TAB.ER.24H PO SCH (08:34)
[2019-12-24] MEDS: LACTULOSE 20 GM/30 ML UDC PO SCH (08:35)
[2019-12-24] MEDS: RIFAXIMIN 550 MG TABLET PO SCH ×2 (08:49→20:40)
[2019-12-24] MEDS: OXYcodone IR 5MG TABLET PO PRN ×2 (09:29→16:00)
[2019-12-24 12:56] VITALS: BP 103/62
[2019-12-24] MEDS: MORPHINE SULFATE 4 MG/ML, 1ML IVPush PRN ×2 (16:00→21:22)
[2019-12-24 16:01] VITALS: BP 103/55
[2019-12-24 20:36] VITALS: BP 110/64
[2019-12-24] MEDS: INSULIN GLARGINE 100 UNITS/ML, PEN SQ-INSULIN SCH (21:21)
[2019-12-25] MEDS: OXYcodone IR 5MG TABLET PO PRN ×2 (00:49→10:16)
[2019-12-25] MEDS: AMPICILLIN/SULBACTAM 3 GM in SODIUM CHLORIDE 0.9% 100 ML IV SCH (01:01)
[2019-12-25 01:34] VITALS: BP 132/75
[2019-12-25] MEDS: INSULIN LISPRO 100 UNITS/ML, PEN SQ-INSULIN SCH ×4 (07:00→20:50)
[2019-12-25 08:20] VITALS: BP 100/66
[2019-12-25] MEDS: LACTULOSE 20 GM/30 ML UDC PO SCH (08:57)
[2019-12-25] MEDS: TAMSULOSIN 0.4 MG CAP.ER.24H PO SCH (09:00)
[2019-12-25] MEDS: DIGOXIN 0.125 MG TABLET PO SCH (09:01)
[2019-12-25] MEDS: FUROSEMIDE 40 MG TABLET PO SCH (09:02)
[2019-12-25] MEDS: LEVOFLOXACIN 750 MG TABLET PO SCH (09:03)
[2019-12-25] MEDS: PANTOPRAZOLE 40MG TABLET PO SCH ×2 (09:04→20:51)
[2019-12-25] MEDS: METOPROLOL SUCCINATE 50 MG TAB.ER.24H PO SCH (09:05)
[2019-12-25] MEDS: RIFAXIMIN 550 MG TABLET PO SCH ×2 (09:06→20:51)
[2019-12-25] MEDS: MORPHINE SULFATE 4 MG/ML, 1ML IVPush PRN ×3 (11:21→23:06)
[2019-12-25 14:30] VITALS: BP 97/61
[2019-12-25] MEDS: INSULIN GLARGINE 100 UNITS/ML, PEN SQ-INSULIN SCH (20:51)
[2019-12-25 21:24] VITALS: BP 102/63
[2019-12-26 02:36] VITALS: BP 89/55
[2019-12-26] MEDS: INSULIN LISPRO 100 UNITS/ML, PEN SQ-INSULIN SCH ×4 (07:00→21:38)
[2019-12-26 07:18] VITALS: BP 117/69
[2019-12-26] MEDS: DIGOXIN 0.125 MG TABLET PO SCH (08:39)
[2019-12-26] MEDS: MORPHINE SULFATE 4 MG/ML, 1ML IVPush PRN (08:40)
[2019-12-26] MEDS: RIFAXIMIN 550 MG TABLET PO SCH ×2 (08:41→21:38)
[2019-12-26] MEDS: METOPROLOL SUCCINATE 50 MG TAB.ER.24H PO SCH (08:41)
[2019-12-26] MEDS: PANTOPRAZOLE 40MG TABLET PO SCH ×2 (08:41→21:38)
[2019-12-26] MEDS: TAMSULOSIN 0.4 MG CAP.ER.24H PO SCH (08:41)
[2019-12-26] MEDS: FUROSEMIDE 40 MG TABLET PO SCH (08:42)
[2019-12-26] MEDS: LACTULOSE 20 GM/30 ML UDC PO SCH (08:42)
[2019-12-26] MEDS: LEVOFLOXACIN 750 MG TABLET PO SCH (08:42)
[2019-12-26] MEDS ORDERED: ASCO500T9 PO (09:54)
[2019-12-26] MEDS ORDERED: OXYC-302 PO (09:54)
[2019-12-26] MEDS ORDERED: LEVO750T6 PO (09:54)
[2019-12-26] MEDS ORDERED: FLU VACC QS2020-21(6MOS UP)/PF 60MCG/0.5 ML SYR IM-VACC ONE (12:00)
[2019-12-26] MEDS: OXYcodone IR 5MG TABLET PO PRN (16:59)
[2019-12-26 17:02] VITALS: BP 107/61
[2019-12-26 19:20] VITALS: BP 96/57
[2019-12-26] MEDS: INSULIN GLARGINE 100 UNITS/ML, PEN SQ-INSULIN SCH (21:38)
[2019-12-27 01:00] VITALS: BP 100/68
[2019-12-27 06:49] VITALS: BP 105/64
[2019-12-27] MEDS: INSULIN LISPRO 100 UNITS/ML, PEN SQ-INSULIN SCH ×2 (07:00→12:55)
[2019-12-27] MEDS: LACTULOSE 20 GM/30 ML UDC PO SCH ×3 (09:00→09:37)
[2019-12-27] MEDS: FUROSEMIDE 40 MG TABLET PO SCH (09:32)
[2019-12-27] MEDS: METOPROLOL SUCCINATE 50 MG TAB.ER.24H PO SCH (09:32)
[2019-12-27] MEDS: RIFAXIMIN 550 MG TABLET PO SCH (09:32)
[2019-12-27] MEDS: LEVOFLOXACIN 750 MG TABLET PO SCH (09:32)
[2019-12-27] MEDS: DIGOXIN 0.125 MG TABLET PO SCH (09:32)
[2019-12-27] MEDS: TAMSULOSIN 0.4 MG CAP.ER.24H PO SCH (09:34)
[2019-12-27] MEDS: PANTOPRAZOLE 40MG TABLET PO SCH (09:34)
[2019-12-27 12:14] VITALS: BP 103/54
[2019-12-27] MEDS: OXYcodone IR 5MG TABLET PO PRN (15:08)
[2019-12-28] MEDS ORDERED: METF500T17 PO (10:51)
== END 2019-12-27 16:15 | disposition home or self-care (01) | DRG 603 ==
LOC: ED 18:54 → EDIP 20:09 → 4WST 22:18 → 5SO 12-21 16:44 → DCLOUNGE 12-27 16:04
PROVIDERS: ADMIT Family Medicine; ATTEND Family Medicine
PROC: 0Y910ZZ Drainage of Left Buttock, Open Approach (ICD-10-PCS; principal; 2019-12-20)
DX: L02.31 Cutaneous abscess of buttock (principal); I48.20 Chronic atrial fibrillation, unspecified; N17.9 Acute kidney failure, unspecified; E86.0 Dehydration; E87.5 Hyperkalemia; K70.30 Alcoholic cirrhosis of liver without ascites; Z79.4 Long term (current) use of insulin
CPT/HCPCS: 36415; 72197; 80048; 80053; 80162; 80202; 82436; 82962; 83036; 83605; 83735; 84132; 84133; 84145; 84300; 85025; 87040; 87070; 87077; 87186; 87205; 90686; 96374; 96375; 99291; G0378; J0295; J0610; J1815; J3370; J3475; A9575; J2270; J7030; J7040; J7050

== ENCOUNTER → 2020-02-25 | Outpatient (CLI) | payer MEDICAID ==
[~2020-02-25] MED LIST changes: +ASCO500T9 PO; +LEVO750T6 PO; +METF500T17 PO; +OXYC-302 PO
== END | disposition home or self-care (01) ==
LOC: RAD 02-19 07:14
PROVIDERS: ATTEND Internal Medicine Hematology & Oncology
DX: R16.1 Splenomegaly, not elsewhere classified (principal); D69.6 Thrombocytopenia, unspecified
CPT/HCPCS: 76700